=== PATIENT | female | born 1940 | race Caucasian/White ===

== ENCOUNTER 2019-05-24 12:08 | Outpatient (CLI) | payer MEDICARE, SELFPAY ==
--- NOTE | 2019-05-26 15:31 | ONC CON_ITS ---
Dr. Berger New Patient Note Patient: Leonora Gupta Unit #: [id number]: 1940 Dicatated By: Jessica Berger M.D.Date of Visit: May 24, 2019 Onc MED New Patient/Consult Referring Physician: Dr. Ed Shine M.D. History of Present Illness: Mrs. 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 Final pathology confirmed 7 x 6.5 x 6 cm single tumor, well-differentiated endometrioid adenocarcinoma type p TIc, tumor limited to 1 ovary with malignant cell in the peritoneal washings 0 out of 26 lymph node showed metastatic disease N0 FIGO 1C subsequently underwent adjuvant chemotherapy with carboplatin and Taxol ???4 completed in late 2011. Since then she has been followed by Dr. Shine on a yearly basis with no evidence of disease. And her tumor marker CEA 125 was checked on 03/08/2019 and it was 8.7. Patient denies any specific complaints, no abdominal fullness, no abdominal pain, no jaundice, no diarrhea constipation, no weight loss, appetite is good. No fever or chills no night sweats no nausea vomiting. Past Medical History: Ms. Gupta's medical history consists of chronic obstructive pulmonary disease, history of cervical cancer, hyperlipidemia, hypertension, and sciatica. Past Surgical History: Ms. Gupta's surgical/procedural history consists of hysterectomy/bilateral salpingectomy-oophorectomy, repair of retrocele/cystocele, resection of right ovarian mass, right total knee arthroscopy, port placement in 2011, and appendectomy in 196. Medications: Citalopram Hydrobromide 1 Tablet (of 40 mg) Oral daily, Lisinopril 1 Tablet (of 10 mg) Oral daily, LORazepam 1 Tablet (of 1 mg) Oral at bedtime, Metoprolol Succinate ER 2 Tablet (of 100 mg) Tablet SR 24 HR Oral b.i.d., Spiriva Respimat (2.5 mcg/act) Aerosol, solution Inhalation b.i.d. Allergies: No Known Allergies. Social History: Ms. Gupta is and she is retired. She is a daily smoker who has smoked 0.5 packs/day for 5 years. She has no history of drinking. She has indicated exposure to the following products: cigarettes. Ms. Gupta reports the following support systems: lives alone, lives in own house, supportive family/friends willing to assist with needs, and adequate transportation available for expected visits. Her diet consists of regular meals. She indicates her activity level as: occasional exercise. Family History: Ms. Gupta's mother at age 77: myocardial infarction. Ms. Gupta's father at age 91: myocardial infarction. Review Of Symptoms: Constitutional - Appetite is good and weight is increasing. No fever, chills, hot flashes, or night sweats. Energy level is fair, ENMT - No sinus congestion/drainage. No mouth sores. No sore throat or difficulty swallowing, Hematologic/Lymphatic - No abnormal bruising or bleeding, Respiratory - Positive for shortness of breath and cough (Pt states she has COPD), Cardiovascular - No angina pain. No palpitations, Gastrointestinal - No nausea or vomiting. Positive for heartburn, no acid reflux. No diarrhea or constipation. No blood in the stool or black stools, Genitourinary (F) - No dysuria or hematuria. No urinary frequency. No urgency. Positive for incontinence, Musculoskeletal - Positive for generalized joint pain, Neurologic - No headache or dizziness. No numbness/paresthesias or other focal neurologic symptoms, Psychiatric - No anxiety. Positive for depression. No insomnia. Vital Signs: Performed on May 24, 2019 12:47: 0, 35.58 (HIGH), 2.04 sq.m, 65.00 in, 95 % (LOW), 72 /min, 18 /min, 156/80 mm(hg) (HIGH), 97.7 F (LOW), and 213.8 lbs (HIGH). Performance Status: 1 - No physically strenuous activity, but ambulatory and able to carry out light or sedentary work (e.g. office work, light house work). (ECOG) Physical Examination: ENMT - No oral exudates, ulcers, masses, thrush or mucositis. Oropharynx clear. Tongue normal, Respiratory - Lungs are clear to auscultation without rhonchi or wheezing, Cardiovascular - Regular rate and rhythm of heart, Abdomen - Non-tender, non-distended, Good bowel sounds. No guarding or rebound tenderness. No pulsatile masses, Extremities - no edema. Lab/Imaging: Most recent lab results are not available for this patient. 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 shine's office and continue with port maintenance on monthly basis. Patient will return to clinic in February 2020 with CBC CMP and CA-125 unless any new symptoms like recurrent abdominal pain, unexplained weight loss or jaundice or increase in abdominal girth or shortness of breath. Signed By: Jessica Berger M.D. <<Signature on File>>
== END 2019-05-24 12:09 | disposition home or self-care (01) ==
LOC: ONCMED 12:16
PROVIDERS: Family Provider Family Medicine; Visit Provider Internal Medicine Hematology & Oncology
DX: Z08 Encounter for follow-up examination after completed treatment for malignant neoplasm (principal); Z85.43 Personal history of malignant neoplasm of ovary; Z45.2 Encounter for adjustment and management of vascular access device; J44.9 Chronic obstructive pulmonary disease, unspecified; E78.5 Hyperlipidemia, unspecified; I10 Essential (primary) hypertension; F17.210 Nicotine dependence, cigarettes, uncomplicated; F32.9 Major depressive disorder, single episode, unspecified; Z85.41 Personal history of malignant neoplasm of cervix uteri; Z90.722 Acquired absence of ovaries, bilateral; Z92.21 Personal history of antineoplastic chemotherapy
CPT/HCPCS: 96523; 99204

== ENCOUNTER 2019-07-05 13:59 | Outpatient (CLI) | payer MEDICARE, SELFPAY | END 2019-07-05 14:00 | disposition home or self-care (01) | LOC: ONCMED 14:02 | PROVIDERS: Family Provider Family Medicine; PCP Family Medicine; Visit Provider Internal Medicine Hematology & Oncology | DX: Z45.2 Encounter for adjustment and management of vascular access device (principal) | CPT/HCPCS: 96523 ==

== ENCOUNTER 2019-09-27 13:52 | Outpatient (CLI) | payer MEDICARE, SELFPAY ==
[2019-09-27] MEDS: alteplase 1 mg/mL SDV 2 mL 2 MG IV (14:27)
== END 2019-09-27 13:53 | disposition home or self-care (01) ==
LOC: ONCMED 13:54
PROVIDERS: PCP Family Medicine; Visit Provider Internal Medicine Hematology & Oncology
DX: Z85.43 Personal history of malignant neoplasm of ovary (principal)
CPT/HCPCS: 36593; 96374; J2997

== ENCOUNTER 2019-11-08 13:59 | Outpatient (CLI) | payer MEDICARE, SELFPAY | END 2019-11-08 14:00 | disposition home or self-care (01) | LOC: ONCMED 14:02 | PROVIDERS: PCP Family Medicine; Visit Provider Internal Medicine Hematology & Oncology | DX: Z45.2 Encounter for adjustment and management of vascular access device (principal); Z85.43 Personal history of malignant neoplasm of ovary | CPT/HCPCS: 96523 ==

== ENCOUNTER 2019-12-20 13:56 | Outpatient (CLI) | payer MEDICARE, SELFPAY | END 2019-12-20 13:57 | disposition home or self-care (01) | LOC: ONCMED 13:58 | PROVIDERS: PCP Family Medicine; Visit Provider Internal Medicine Hematology & Oncology | DX: Z45.2 Encounter for adjustment and management of vascular access device (principal); Z85.43 Personal history of malignant neoplasm of ovary | CPT/HCPCS: 96523 ==

== ENCOUNTER 2020-01-31 13:54 | Outpatient (CLI) | payer MEDICARE, SELFPAY | END 2020-01-31 13:55 | disposition home or self-care (01) | LOC: ONCMED 13:57 | PROVIDERS: PCP Family Medicine; Visit Provider Internal Medicine Hematology & Oncology | DX: Z45.2 Encounter for adjustment and management of vascular access device (principal) | CPT/HCPCS: 96523 ==

== ENCOUNTER 2020-03-13 12:25 | Outpatient (CLI) | payer MEDICARE, SELFPAY ==
[2020-03-13 13:07] LABS: Basophils % 0.3 %; Eosinophils # 0.1 10^3/uL (0.0-0.8); Eosinophils % 1.7 %; Hematocrit 45.2 % (37.0-47.0); Hemoglobin 14.9 g/dL (11.5-15.3); Lymphocytes # 2.2 10^3/uL (0.8-4.8); Lymphocytes % 33.1 %; Mean Corpuscular Volume 94.2 fL (81-99); Mean Platelet Volume 10.6 fL (7.4-10.4); Monocytes # 0.6 10^3/uL (0.2-0.9); Monocytes % 9.1 %; Neutrophils # 3.67 10^3/uL (1.8-7.7); Neutrophils % 55.5 %; Nucleated Red Blood Cells % 0 %; Platelet Count 309 10^3/cmm (130-400); Red Cell Distribution Width 12.5 % (12.1-15.1); White Blood Count 6.6 10^3/uL (4.0-10.0)
[2020-03-13 13:37] LABS: Alanine Aminotransferase 24 U/L (0-33); Alkaline Phosphatase 64 IU/L (35-105); Anion Gap 13.3 (5-19); Aspartate Amino Transferase 21 U/L (0-32); Blood Urea Nitrogen 18 mg/dL (8-23); CA 125 7.5 U/mL (0-35); Calcium 9.3 mg/dL (8.5-10.5); Carbon Dioxide 28 mmol/L (22-29); Chloride 101 mmol/L (98-107); Globulin 2.9 g/dL (1.3-4.6); Glucose 112 mg/dL (65-115); Osmolality Calculated 289 mOsm/kg (285-295); Potassium 4.3 mmol/L (3.5-5.1); Sodium 138 mmol/L (136-145); Total Bilirubin 0.4 mg/dL (0.15-1.2); Total Protein 6.9 g/dL (6.6-8.7)
--- NOTE | 2020-03-13 16:01 | ONC FU_ITS ---
Dr. Berger follow up note Patient: Leonora Gupta Unit #: [id number]: 1940 Dicatated By: Jessica Berger M.D.Date of Visit:Mar 13, 2020 Onc Med Follow-up/Prog Note History of Present Illness: Mrs. 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 Final pathology confirmed 7 x 6.5 x 6 cm single tumor, well-differentiated endometrioid adenocarcinoma type p TIc, tumor limited to 1 ovary with malignant cell in the peritoneal washings 0 out of 26 lymph node showed metastatic disease N0 FIGO 1C subsequently underwent adjuvant chemotherapy with carboplatin and Taxol ???4 completed in late 2011. Since then she has been followed by Dr. Monroy on a yearly basis with no evidence of disease. And her tumor marker CEA 125 was checked on 03/08/2019 and it was 8.7. Came for follow-up, denies any specific complaints, no fever chills, no nausea or vomiting, no diarrhea constipation, no abdominal pain or fullness, no vaginal bleeding, no jaundice, no hemoptysis or hematemesis, no shortness of breath, no increased abdominal health. Appetite is good. Medications: Citalopram Hydrobromide 1 Tablet (of 40 mg) Oral daily, Lisinopril 1 Tablet (of 10 mg) Oral daily, LORazepam 1 Tablet (of 1 mg) Oral at bedtime, Metoprolol Succinate ER 2 Tablet (of 100 mg) Tablet SR 24 HR Oral b.i.d., Spiriva Respimat (2.5 mcg/act) Aerosol, solution Inhalation b.i.d. Allergies: No Known Allergies. Review of Systems: Review of Systems is not available for this patient. Vital Signs: Performed on Mar 13, 2020 14:18 Height - 65.00 in Weight - 214.6 lbs (HIGH) BSA - 2.04 sq.m BMI - 35.71 (HIGH) Temperature - 98.3 F (LOW) Pulse - 75 /min Respiration - 24 /min BP - 150/90 mm(hg) (HIGH) O2 Sat - 95 % (LOW) Pain - 0 Performance Status: 0 - Fully active, able to carry on all predisease activities without restrictions. (ECOG) Physical Examination: ENMT - No mouth sores, no thrush, no jaundice, Respiratory - Lungs are clear to auscultation, Cardiovascular - Regular rate and rhythm of heart, Abdomen - Soft, bowel sounds present, Extremities - No visible edema. Lab/Imaging: Most recent lab results are not available for this patient. 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, status post bilateral salpingo-oophorectomy, pelvic and periaortic lymphadenectomy, omentectomy final pathology report showed T1c tumor limited to 1 ovary with malignant cell and the peritoneal washing 0 /26 lymph node positive for metastatic disease N0 FIGO 1C status post adjuvant chemotherapy with carbo and Taxol ???4 completed in late April 2012 Plan: Discussed with patient regarding her labs white blood count 6.6 hemoglobin 14.9 hematocrit 45.2 platelets 309,000 CMP within normal limits CA-125 7.5 Clinically, patient doing well with no new signs symptoms, with good quality of life, follow-up lab work-up is within normal range, will continue to monitor return to clinic in 1 year with CBC CMP Signed By: Jessica Berger M.D. <<Signature on File>>
== END 2020-03-13 12:26 | disposition home or self-care (01) ==
LOC: ONCMED 12:28
PROVIDERS: PCP Family Medicine; Visit Provider Internal Medicine Hematology & Oncology
DX: Z08 Encounter for follow-up examination after completed treatment for malignant neoplasm (principal); Z85.43 Personal history of malignant neoplasm of ovary; Z92.21 Personal history of antineoplastic chemotherapy
CPT/HCPCS: 36591; 80053; 85025; 86304; G0463

== ENCOUNTER 2020-04-21 10:44 | Emergency (ER) | payer MEDICARE, SELFPAY ==
[2020-04-21 10:50] VITALS: BP 226/105; PULSE 62; RESP 30; TEMP 35.9; O2SAT 95; BMI 33.3
--- NOTE | 2020-04-21 10:55 | ECG_ITS ---
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1940 Requested By: Lesa Castillo Order Number: [id number] Reading MD: BEN MUNOZ Measurements Intervals [place] Rate: 59 P: 75 MO: 175 QRS: 38 QRSD: 87 T: 66 QT: 446 QTc: 443 Interpretive Statements SINUS BRADYCARDIA POSSIBLE LEFT ATRIAL ENLARGEMENT [-0.1mV P WAVE IN V1/V2] Compared to ECG 08/17/2018 11:07:23 Myocardial infarct finding no longer present Electronically Signed On 04-21-2020 18:54:22 BAKER CHEF by BEN MUNOZ [id number] f
--- NOTE | 2020-04-21 10:55 | CTR_ITS ---
PROCEDURE INFORMATION: Exam: CT Head Without Contrast Exam date and time: 04/21/2020 11:34 AM Age: 79 years old Clinical indication: Dizziness; Additional info: Dizzy TECHNIQUE: Imaging protocol: Computed tomography of the head without contrast. Radiation optimization: All CT scans at this facility use at least one of these dose optimization techniques: automated exposure control; mA and/or kV adjustment per patient size (includes targeted exams where dose is matched to clinical indication); or iterative reconstruction. COMPARISON: No relevant prior studies available. RADIATION DOSE METRICS: Total DLP (mGy-cm): 705.57 FINDINGS: Brain: There is linear low-density in region of left internal capsule which may be perivascular space or a chronic small lacunar infarct. There is no acute intracranial hemorrhage. There is mild lucency in the cerebral white matter, likely microvascular disease although non-specific. Simpson white differentiation is intact. There are no extra-axial fluid collections. No evidence of mass. There is no mass effect or midline shift. Cerebral ventricles: There is a linear mild hyperdensity extending from right occipital posterior sulcus to the posterior ventricular margin which is likely a small developmental venous anomaly, typically not of clinical significance. The ventricles and sulci are enlarged, consistent with age-appropriate volume loss / atrophy. No hydrocephalus. Bones/joints: No acute fracture. Paranasal sinuses: There is no significant mucosal thickening in paranasal sinuses. No air-fluid levels. There is a very small retention cyst or polyp in a right mid ethmoid air cell. Mastoid air cells: Mastoid air cells and middle ear cavities are well developed and well aerated. Vasculature: There is vascular calcification. Soft tissues: Unremarkable as visualized. CT/CT head wo con* [id number] IMPRESSION: 1. No evidence of acute intracranial abnormality. No evidence of acute infarction, hemorrhage, or mass. 2. Atrophy and microvascular disease. 3. Other findings as described. Radiation Dose CTDIVOL = (mGy): DLP = 705.57 (mGy-cm)
--- NOTE | 2020-04-21 10:57 | W.ED.DIZZY ---
HPI - Dizziness General: Chief Complaint: Dizziness Stated Complaint: High BP, N/V, Dizziness Time Seen by Provider: 04/21/20 10:51 Source: patient Mode of arrival: ambulatory Limitations: no limitations History of Present Illness: HPI Narrative: 71-year-old female states over the last 3 days she has had dizziness no nausea vomiting. She states she has severe vertigo with any sudden movements and has vomiting. She states she has had this in the past and meclizine helped in the past but does not help today. States her blood pressures also been running high and is 226/105 here. Denies any headache denies any chest pain. States her symptoms are improved with rest. Associated symptoms: Reports nausea and vomiting; Denies chest pain or chills Review of Systems Const: Denies: fever(s), chills, body aches or change in appetite Eyes: Denies: blurry vision or eye discomfort ENMT: Denies: throat pain or dental pain Card: Denies: chest pain Resp: Denies: dyspnea GI: Reports: nausea and vomiting : Denies: dysuria Musc: Denies: neck pain or back pain Skin/Breast: Denies: rash Neuro: Reports: dizziness Psych: Denies: depression Smooth/Lymph: Denies: easy bruising All/Imm: Denies: urticaria PFSH ED PFSH: Social History Current gender identity: Female Physical Exam Const: COMMON NORMALS: no acute distress, patient oriented x3 and healthy appearing HENMT: COMMON NORMALS: normocephalic and atraumatic HEAD & SCALP: normocephalic and atraumatic Eye: COMMON NORMALS: Equal, round and reactive pupils present and EOMs intact bilaterally PUPIL: Yes Equal, round and reactive pupils present Neck/C-Spine: COMMON NORMALS: full ROM and supple Chest: COMMONS NORMALS: normal inspection of the chest and normal palpation of entire chest wall Resp: COMMON NORMALS: normal respiratory effort, No retractions, No use of accessory muscles and clear to auscultation bilaterally AUSCULTATION: clear to auscultation bilaterally Cardio: COMMON NORMALS: regular rate, regular rhythm and No murmurs present (Cardio) RATE: regular rate RHYTHM: regular rhythm GI: COMMON NORMALS: Normal to inspection, nondistended, normoactive bowel sounds present, Soft to palpation, non-tender and no masses PALPATION: Yes Soft to palpation Extremity: COMMON NORMALS: normal to inspection and full ROM Neuro: COMMON NORMALS: patient oriented x3, moves all extremities and no focal motor deficits Psych: COMMON NORMALS: mental status grossly normal, Normal thought process present and cooperative THOUGHT PROCESS: Normal thought process present Skin: COMMON NORMALS: no rashes or lesions noted and no wounds GENERAL SKIN EXAM: no rashes or lesions noted Course Vital Signs: Vital signs: Vital Signs Temperature 96.7 F L 04/21/20 10:50 Pulse Rate 73 04/21/20 12:44 Respiratory Rate 17 04/21/20 12:44 Blood Pressure 173/85 04/21/20 12:43 Pulse Oximetry 95 04/21/20 12:44 MDM - Dizziness MDM Narrative: Medical decision making narrative: Patient presents here with vertigo that is likely peripheral in nature. Patient has a history of BPPV and her symptoms are the same. She feels much improved here after meclizine and Valium. She is able to ambulate without no ataxia and no vertigo. She has no vertigo at rest and I do not believe she has had a posterior stroke. She is stable for discharge and I informed her if her symptoms return she is to return immediately. She understands agrees to plan. Lab Data: Labs: Lab Results 04/21/20 04/21/20 04/21/20 Range/Units 11:12 11:12 12:45 WBC Cancelled 8.2 Corrected WBC Cancelled RBC Cancelled 4.87 Hgb Cancelled 15.0 Hct Cancelled 45.6 MCV Cancelled 93.6 MCH Cancelled 30.8 MCHC Cancelled 32.9 RDW Cancelled 12.3 Plt Count Cancelled 286 MPV Cancelled 10.8 H Gran % Cancelled Neut % (Auto) Cancelled 70.2 Lymph % (Auto) Cancelled 20.9 Pope % (Auto) Cancelled 7.9 Eos % (Auto) Cancelled 0.7 Baso % (Auto) Cancelled 0.1 Neut # (Auto) Cancelled 5.76 Lymph # (Auto) Cancelled 1.7 Pope # (Auto) Cancelled 0.7 Eos # (Auto) Cancelled 0.1 Baso # (Auto) Cancelled 0.0 Absolute Gran (aut o) Cancelled Nucleated RBC % (a uto) Cancelled 0 Nucleated RBCs # Cancelled 0.0 Sodium 139 (136-145) mmol/L Potassium 3.5 (3.5-5.1) mmol/L Chloride 102 (98-107) mmol/L Carbon Dioxide 25 (22-29) mmol/L Anion Gap 15.5 (5-19) BUN 13 (8-23) mg/dL Creatinine 0.6 (0.5-0.9) mg/dL GFR Calculation Not Reportable Glucose 97 (65-115) mg/dL Calculated Osmolal ity 288 (285-295) mOsm/k g Calcium 8.6 (8.5-10.5) mg/dL Total Bilirubin 0.5 (0.15-1.2) mg/dL AST 16 (0-32) U/L ALT 16 (0-33) U/L Alkaline Phosphata se 60 (35-105) IU/L Total Protein 6.6 (6.6-8.7) g/dL Albumin 3.9 (3.5-5.2) g/dL Globulin 2.7 (1.3-4.6) g/dL Lipase 30 (13-60) U/L Imaging Data^: CT Head: Attestation: I personally reviewed and interpreted this imaging study as follows: Radiologist's impression: [address] [address] [address] Scan Report Signed Patient: Leonora Gupta Unit #: [id number] : 1940 Age/Sex: 79 / F ADM Date: 04/21/20 Loc: ER Room/Bed: Attending Dr: Ordering Provider/Ordering MD: Lesa Castillo MD Date of Service: 04/21/20 Procedure(s): CT head wo con* [id number] Accession Number(s): [id number] Report Number: [id number] PROCEDURE INFORMATION: Exam: CT Head Without Contrast Exam date and time: 04/21/2020 11:34 AM Age: 79 years old Clinical indication: Dizziness; Additional info: Dizzy TECHNIQUE: Imaging protocol: Computed tomography of the head without contrast. Radiation optimization: All CT scans at this facility use at least one of these dose optimization techniques: automated exposure control; mA and/or kV adjustment per patient size (includes targeted exams where dose is matched to clinical indication); or iterative reconstruction. COMPARISON: No relevant prior studies available. RADIATION DOSE METRICS: Total DLP (mGy-cm): 705.57 FINDINGS: Brain: There is linear low-density in region of left internal capsule which may be perivascular space or a chronic small lacunar infarct. There is no acute intracranial hemorrhage. There is mild lucency in the cerebral white matter, likely microvascular disease although non-specific. Simpson white differentiation is intact. There are no extra-axial fluid collections. No evidence of mass. There is no mass effect or midline shift. Cerebral ventricles: There is a linear mild hyperdensity extending from right occipital posterior sulcus to the posterior ventricular margin which is likely a small developmental venous anomaly, typically not of clinical significance. The ventricles and sulci are enlarged, consistent with age-appropriate volume loss / atrophy. No hydrocephalus. Bones/joints: No acute fracture. Paranasal sinuses: There is no significant mucosal thickening in paranasal sinuses. No air-fluid levels. There is a very small retention cyst or polyp in a right mid ethmoid air cell. Mastoid air cells: Mastoid air cells and middle ear cavities are well developed and well aerated. Vasculature: There is vascular calcification. Soft tissues: Unremarkable as visualized. CT/CT head wo con* [id number] IMPRESSION: 1. No evidence of acute intracranial abnormality. No evidence of acute infarction, hemorrhage, or mass. 2. Atrophy and microvascular disease. 3. Other findings as described. EKG Data^: EKG 1: Attestation: I personally reviewed and interpreted this EKG as follows: EKG interpretation date: 04/21/20 EKG interpretation time: 10:59 Interpretation: sinus divina hr [address] or t wave abnormalities qrs 87 qtc 445 Discharge Plan Discharge Patient Disposition: Home Clinical Impression: Vertigo Condition: Stable Prescriptions: New ondansetron 4 mg tablet,disintegrating 4 mg PO Q6H PRN (Reason: nausea and vomiting) Qty: 14 RF: 0 Valium 2 mg tablet 2 mg PO TID PRN (Reason: vertigo) Qty: 14 RF: 0 No Action citalopram 40 mg tablet 40 mg PO DAILY@10 RF: 0 metoprolol succinate 100 mg tablet extended release 24 hr 100 mg PO Q12H RF: 0 lorazepam 0.5 mg tablet 0.5 - 0.75 mg PO DAILY@21 RF: 0 meclizine 25 mg tablet 25 mg PO BID PRN (Reason: Nausea) RF: 0 lisinopril 40 mg tablet 40 mg PO DAILY@10 RF: 0 Spiriva Respimat 2.5 mcg/actuation mist 2 puff INHALATION DAILY PRN (Reason: unknown) RF: 0 Discharge Orders: Discharge ED (Routine); Ordered 04/21/20 Ordered By: Lesa Castillo Referrals: Jared Casanova MD [Primary Care Provider] - 1-3 days Discharge Diet: Advance as tolerated Discharge Activity: Resume usual activity Patient Instructions: Benign Paroxysmal Positional Vertigo (ED) Coding Level of Care Code 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
[2020-04-21] MEDS: ondansetron 2 mg/ML SDV 2 mL 4 MG IVP (11:44)
[2020-04-21] MEDS: sodium chloride 0.9% 1,000 ML 999 ML IV (11:45)
[2020-04-21] MEDS: hyDRALAzine 20 mg/mL INJ 1 mL 10 MG IVP (11:48)
[2020-04-21] MEDS: diazePAM 2 mg Tablet PO (11:50)
[2020-04-21 11:53] VITALS: BP 175/93; PULSE 58; RESP 19; O2SAT 94
[2020-04-21 12:18] LABS: Alanine Aminotransferase 16 U/L (0-33); Albumin Level 3.9 g/dL (3.5-5.2); Alkaline Phosphatase 60 IU/L (35-105); Anion Gap 15.5 (5-19); Aspartate Amino Transferase 16 U/L (0-32); Blood Urea Nitrogen 13 mg/dL (8-23); Calcium 8.6 mg/dL (8.5-10.5); Carbon Dioxide 25 mmol/L (22-29); Chloride 102 mmol/L (98-107); Globulin 2.7 g/dL (1.3-4.6); Glucose 97 mg/dL (65-115); Lipase 30 U/L (13-60); Osmolality Calculated 288 mOsm/kg (285-295); Potassium 3.5 mmol/L (3.5-5.1); Sodium 139 mmol/L (136-145); Total Bilirubin 0.5 mg/dL (0.15-1.2); Total Protein 6.6 g/dL (6.6-8.7)
[2020-04-21 12:43] VITALS: BP 173/85
[2020-04-21 12:44] VITALS: PULSE 73; RESP 17; O2SAT 95
[2020-04-21] MEDS: meclizine 25 mg tablet 50 MG PO (12:50)
[2020-04-21 13:13] LABS: Basophils % 0.1 %; Eosinophils # 0.1 10^3/uL (0.0-0.8); Eosinophils % 0.7 %; Hematocrit 45.6 % (37.0-47.0); Lymphocytes # 1.7 10^3/uL (0.8-4.8); Lymphocytes % 20.9 %; Mean Corpuscular HGB Conc 32.9 g/dL (30.0-36.0); Mean Corpuscular Hemoglobin 30.8 pg (28.0-34.0); Mean Corpuscular Volume 93.6 fL (81-99); Mean Platelet Volume 10.8 fL (7.4-10.4); Monocytes # 0.7 10^3/uL (0.2-0.9); Monocytes % 7.9 %; Neutrophils # 5.76 10^3/uL (1.8-7.7); Neutrophils % 70.2 %; Nucleated Red Blood Cells % 0 %; Platelet Count 286 10^3/cmm (130-400); Red Blood Count 4.87 10^6/uL (4.1-5.3); Red Cell Distribution Width 12.3 % (12.1-15.1); White Blood Count 8.2 10^3/uL (4.0-10.0)
--- NOTE | 2020-04-21 13:34 | PC.NURSE ---
pt assisted to a sitting position in bed. pt reports that nausea and dizziness are still present but not as severe. pt requests to stand up and try to ambulate around the room. pt assisted with this. pt reports that dizziness is better when standing than when laying flat in bed. pt reports that nausea remains the same as when sitting up. Leonardo SEBASTIAN notified. pt assisted back to bed. bed rails raised x2 per pt request.
== END 2020-04-21 14:10 | disposition home or self-care (01) ==
PROVIDERS: Emergency Provider Emergency Medicine; PCP Family Medicine
DX: R42 Dizziness and giddiness (principal)
CPT/HCPCS: 12345; 36591; 70450; 80053; 83690; 85025; 93005; 96361; 96374; 96375; 99281; 99283; J0360; J2405; J7030; J8597

== ENCOUNTER 2020-04-24 16:26 | Outpatient (RCR) | payer MEDICARE, SELFPAY | END 2020-05-10 23:59 | disposition home or self-care (01) | LOC: SPT 16:26 | PROVIDERS: PCP Family Medicine; Referring Provider Family Medicine; Visit Provider Family Medicine | DX: R42 Dizziness and giddiness (principal) | CPT/HCPCS: 95992; 97110; 97162 ==

== ENCOUNTER 2020-05-02 10:00 | Outpatient (CLI) | payer MEDICARE, SELFPAY ==
--- NOTE | 2020-05-02 10:13 | MR_ITS ---
WS: [id number] MRI HEAD WITH CONTRAST WITH ATTENTION TO THE INTERNAL AUDITORY CANALS TECHNIQUE: Sagittal T1, T2 axial, T2 axial flair, axial susceptibility weighted imaging, axial diffus ion weighted images, and coronal T2 images were obtained. Pre and post T1 axial and post T1 coronal i mages. ADC and FSPGR images. Post gadolinium images with attention to the internal auditory canals. A xial fiesta imaging. CLINICAL INFORMATION: VERTIGO COMPARISON: CT April 21, 2020 FINDINGS: No evidence of restricted diffusion to suggest acute ischemia. Ventricular system and basal cisterns are patent. Mild small vessel changes. Moderate parenchymal volume loss. Mild small vessel changes in the lebron. Normal posterior fossa. Normal vascular flow voids at the skull base. No extra-axial fluid collections. Mild mucosal thickening in the paranasal sinuses. Mastoid air cells are well aerated. No hemosiderin on the susceptibility weighted images. Proximal 7th and 8th cranial nerves are normal in appearance. Normal trigeminal nerve root entry zone s. No evidence of enhancing IAC or CP angle mass. Moderate symmetric atrophy temporal lobes and hippo campal formations. No abnormal intracranial enhancement. Normal dural venous sinuses. Normal optic ch iasm and pituitary infundibulum. Normal cavernous sinuses and Meckel's cave. Incidental venous angiom a right posterior temporal lobe. MR/MR iac's wo/w con* [id number] IMPRESSION: 1. No evidence of restricted diffusion to suggest acute ischemia. 2. Mild small vessel changes with moderate parenchymal volume loss. 3. No evidence of enhancing IAC or CP angle mass. Normal trigeminal nerve root entry zones. 4. Incidental venous angioma right posterior temporal lobe. 5. Mild mucosal thickening in the paranasal sinuses. Mastoid air cells are wel l aerated.
== END 2020-05-02 10:01 | disposition home or self-care (01) ==
LOC: RADWPI 10:03
PROVIDERS: PCP Family Medicine; Visit Provider Family Medicine
DX: R42 Dizziness and giddiness (principal); Q28.3 Other malformations of cerebral vessels
CPT/HCPCS: 70553; A9579

== ENCOUNTER 2020-05-11 06:00 | Outpatient (RCR) | payer MEDICARE, SELFPAY | END 2020-06-10 23:59 | disposition home or self-care (01) | LOC: SPT 06:00 | PROVIDERS: PCP Family Medicine; Referring Provider Family Medicine; Visit Provider Family Medicine | DX: R42 Dizziness and giddiness (principal) | CPT/HCPCS: 95992 ==

== ENCOUNTER 2020-05-24 14:45 | Outpatient (CLI) | payer MEDICARE, SELFPAY | END 2020-05-24 14:46 | disposition home or self-care (01) | LOC: ONCMED 14:50 | PROVIDERS: PCP Family Medicine; Visit Provider Internal Medicine Hematology & Oncology | DX: Z45.2 Encounter for adjustment and management of vascular access device (principal) | CPT/HCPCS: 96523 ==

== ENCOUNTER 2020-07-05 14:41 | Outpatient (CLI) | payer MEDICARE, SELFPAY | END 2020-07-05 14:42 | disposition home or self-care (01) | LOC: ONCMED 14:43 | PROVIDERS: PCP Family Medicine; Visit Provider Internal Medicine Hematology & Oncology | DX: Z45.2 Encounter for adjustment and management of vascular access device (principal) | CPT/HCPCS: 96523 ==

== ENCOUNTER 2020-08-16 11:11 | Outpatient (CLI) | payer MEDICARE, SELFPAY | END 2020-08-16 11:12 | disposition home or self-care (01) | LOC: ONCMED 08-17 11:12 | PROVIDERS: PCP Family Medicine; Visit Provider Internal Medicine Medical Oncology | DX: Z45.2 Encounter for adjustment and management of vascular access device (principal) | CPT/HCPCS: 96523 ==

== ENCOUNTER 2020-09-27 14:44 | Outpatient (CLI) | payer MEDICARE, SELFPAY ==
[2020-09-27] MEDS: alteplase 1 mg/mL SDV 2 mL 2 MG IV (15:35)
== END 2020-09-27 14:45 | disposition home or self-care (01) ==
PROVIDERS: PCP Family Medicine; Visit Provider Internal Medicine Hematology & Oncology
DX: Z85.43 Personal history of malignant neoplasm of ovary (principal)
CPT/HCPCS: 36593; 96374; J2997

== ENCOUNTER 2020-12-20 14:34 | Outpatient (CLI) | payer MEDICARE, SELFPAY ==
[2020-12-20 16:06] LABS: Alanine Aminotransferase 17 U/L (0-33); Alkaline Phosphatase 61 IU/L (35-105); Anion Gap 12.2 (5-19); Aspartate Amino Transferase 15 U/L (0-32); Blood Urea Nitrogen 16 mg/dL (8-23); Calcium 8.7 mg/dL (8.5-10.5); Carbon Dioxide 28 mmol/L (22-29); Chloride 102 mmol/L (98-107); Chol HDL Ratio 5.44 mg/dL (0.0-4.40); Cholesterol 261 mg/dL (0-200); Globulin 2.5 g/dL (1.3-4.6); Glucose 85 mg/dL (65-115); HDL Cholesterol 48 mg/dL (60-100); LDL Cholesterol Calculated 175 mg/dL (50-129); LDL HDL Ratio 3.65 RATIO (0.00-3.22); Osmolality Calculated 286 mOsm/kg (285-295); Potassium 4.2 mmol/L (3.5-5.1); Sodium 138 mmol/L (136-145); Total Bilirubin 0.4 mg/dL (0.15-1.2); Total Protein 6.5 g/dL (6.6-8.7); Triglycerides 192 mg/dL (0-150)
== END 2020-12-20 14:35 | disposition home or self-care (01) ==
LOC: ONCMED 14:39
PROVIDERS: PCP Family Medicine; Visit Provider Internal Medicine Hematology & Oncology
DX: C54.1 Malignant neoplasm of endometrium (principal); R42 Dizziness and giddiness; Z79.899 Other long term (current) drug therapy
CPT/HCPCS: 36591; 80053; 80061

== ENCOUNTER 2021-01-31 15:09 | Outpatient (CLI) | payer MEDICARE, SELFPAY | END 2021-01-31 15:10 | disposition home or self-care (01) | LOC: ONCMED 15:11 | PROVIDERS: PCP Family Medicine; Visit Provider Internal Medicine Hematology & Oncology | DX: Z45.2 Encounter for adjustment and management of vascular access device (principal) | CPT/HCPCS: 96523 ==

== ENCOUNTER 2021-04-23 12:22 | Outpatient (CLI) | payer MEDICARE, SELFPAY ==
[2021-04-23 13:01] LABS: Basophils % 0.3 %; Eosinophils # 0.2 10^3/uL (0.0-0.8); Hematocrit 45.1 % (37.0-47.0); Hemoglobin 14.9 g/dL (11.5-15.3); Lymphocytes # 2.2 10^3/uL (0.8-4.8); Lymphocytes % 34.5 %; Mean Corpuscular Hemoglobin 30.8 pg (28.0-34.0); Mean Corpuscular Volume 93.4 fl (81-99); Monocytes # 0.7 10^3/uL (0.2-0.9); Monocytes % 10.2 %; Neutrophils % 51.7 %; Nucleated Red Blood Cells % 0 %; Platelet Count 258 10^3/cmm (130-400); Red Blood Count 4.83 10^6/uL (4.1-5.3); Red Cell Distribution Width 12.2 % (12.1-15.1); White Blood Count 6.4 10^3/uL (4.0-10.0)
[2021-04-23 13:18] LABS: Alanine Aminotransferase 13 U/L (0-33); Alkaline Phosphatase 55 IU/L (35-105); Anion Gap 16.3 (5-19); Aspartate Amino Transferase 14 U/L (0-32); Blood Urea Nitrogen 14 mg/dL (8-23); Calcium 8.6 mg/dL (8.5-10.5); Carbon Dioxide 24 mmol/L (22-29); Chloride 103 mmol/L (98-107); Globulin 2.5 g/dL (1.3-4.6); Glucose 87 mg/dL (65-115); Osmolality Calculated 288 mOsm/kg (285-295); Potassium 4.3 mmol/L (3.5-5.1); Sodium 139 mmol/L (136-145); Total Bilirubin 0.3 mg/dL (0.15-1.2); Total Protein 6.5 g/dL (6.6-8.7)
[2021-04-23 13:35] LABS: Slide Review Slide Review Perform
--- NOTE | 2021-04-24 11:09 | ONC FU_ITS ---
Dr. Berger follow up note Patient: Leonora Gupta Unit #: [id number]: 1940 Dicatated By: Jessica Berger M.D.Date of Visit:Apr 23, 2021 Onc Med Follow-up/Prog Note History of Present Illness: Mrs. 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 Final pathology confirmed 7 x 6.5 x 6 cm single tumor, well-differentiated endometrioid adenocarcinoma type p TIc, tumor limited to 1 ovary with malignant cell in the peritoneal washings 0 out of 26 lymph node showed metastatic disease N0 FIGO 1C subsequently underwent adjuvant chemotherapy with carboplatin and Taxol ???4 completed in late 2011. Since then she has been followed by Dr. Monroy on a yearly basis with no evidence of disease. And her tumor marker CEA 125 was checked on 03/08/2019 and it was 8.7. Came for follow-up, denies any specific complaints, no fever chills, no nausea or vomiting, no diarrhea constipation, no abdominal pain, no weight loss, no vaginal bleeding, no abdominal fullness, no new bony pains, no shortness of breath, no hemoptysis or hematemesis. Overall quality of life is good Medications: Citalopram Hydrobromide 1 Tablet (of 40 mg) Oral daily, Lisinopril 1 Tablet (of 10 mg) Oral daily, LORazepam 1 Tablet (of 1 mg) Oral at bedtime, Metoprolol Succinate ER 2 Tablet (of 100 mg) Tablet SR 24 HR Oral b.i.d., Spiriva Respimat (2.5 mcg/act) Aerosol, solution Inhalation b.i.d. Allergies: No Known Allergies. Review of Systems: Review of Systems is not available for this patient. Vital Signs: Performed on Apr 23, 2021 14:53 Height - 65.00 in Weight - 210.0 lbs (LOW) BSA - 2.02 sq.m BMI - 34.95 (HIGH) Temperature - 98.2 F (LOW) Pulse - 72 /min Respiration - 18 /min BP - 165/94 mm(hg) (HIGH) O2 Sat - 94 % (LOW) Pain - 0 Fatigue - 1 Performance Status: 0 - Fully active, able to carry on all predisease activities without restrictions. (ECOG) Physical Examination: ENMT - No mouth sores, no thrush, no jaundice, Respiratory - Lungs are clear to auscultation, Cardiovascular - Regular rate and rhythm of heart, Abdomen - Soft, bowel sounds present, Extremities - No visible edema. Lab/Imaging: Most recent lab results are not available for this patient. 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 Her follow-up lab work-up is within normal range, She will return to clinic in 1 year with CBC CMP^, Patient was advised to call us in case she has any increasing abdominal girth, new abdominal pain,] Signed By: Jessica Berger M.D. <<Signature on File>>
== END 2021-04-23 12:23 | disposition home or self-care (01) ==
LOC: ONCMED 12:25
PROVIDERS: PCP Family Medicine; Visit Provider Internal Medicine Hematology & Oncology
DX: Z85.43 Personal history of malignant neoplasm of ovary (principal)
CPT/HCPCS: 36591; 80053; 85025; 99214

== ENCOUNTER 2021-06-04 14:03 | Outpatient (CLI) | payer MEDICARE, SELFPAY | END 2021-06-04 14:04 | disposition home or self-care (01) | LOC: ONCMED 14:08 | PROVIDERS: PCP Family Medicine; Visit Provider Internal Medicine Hematology & Oncology | DX: Z45.2 Encounter for adjustment and management of vascular access device (principal) | CPT/HCPCS: 96523 ==

== ENCOUNTER 2021-07-16 13:51 | Outpatient (CLI) | payer MEDICARE, SELFPAY | END 2021-07-16 13:52 | disposition home or self-care (01) | PROVIDERS: PCP Family Medicine; Visit Provider Internal Medicine Hematology & Oncology | DX: Z45.2 Encounter for adjustment and management of vascular access device (principal) | CPT/HCPCS: 96523 ==

== ENCOUNTER 2021-08-27 12:53 | Outpatient (CLI) | payer MEDICARE, SELFPAY | END 2021-08-27 12:54 | disposition home or self-care (01) | LOC: ONCMED 12:56 | PROVIDERS: PCP Family Medicine; Visit Provider Internal Medicine Hematology & Oncology | DX: R42 Dizziness and giddiness (principal); C56.9 Malignant neoplasm of unspecified ovary; Z95.828 Presence of other vascular implants and grafts | CPT/HCPCS: 36591 ==

== ENCOUNTER 2021-10-10 14:50 | Oncology outpatient (recurring) (ONCR) | payer MEDICARE, SELFPAY | END 2021-11-07 23:59 | disposition home or self-care (01) | LOC: ONCMED 14:50 | PROVIDERS: PCP Family Medicine; Visit Provider Internal Medicine Hematology & Oncology | DX: Z45.2 Encounter for adjustment and management of vascular access device (principal) | CPT/HCPCS: 96523 ==

== ENCOUNTER 2021-11-19 13:54 | Oncology outpatient (recurring) (ONCR) | payer MEDICARE, SELFPAY | END 2021-12-08 23:59 | disposition home or self-care (01) | PROVIDERS: PCP Family Medicine; Visit Provider Internal Medicine Hematology & Oncology | DX: Z45.2 Encounter for adjustment and management of vascular access device (principal) | CPT/HCPCS: 96523 ==

== ENCOUNTER 2021-12-31 13:02 | Oncology outpatient (recurring) (ONCR) | payer MEDICARE, SELFPAY ==
[2021-12-31 13:26] VITALS: BP 144/79; PULSE 61; RESP 18; TEMP 36.6; O2SAT 96
[2021-12-31 13:44] LABS: Basophils % 0.3 %; Eosinophils # 0.1 10^3/uL (0.0-0.8); Eosinophils % 1.8 %; Hematocrit 45.5 % (37.0-47.0); Hemoglobin 14.8 g/dL (11.5-15.3); Lymphocytes # 2.3 10^3/uL (0.8-4.8); Lymphocytes % 31.2 %; Mean Corpuscular HGB Conc 32.5 g/dL (30.0-36.0); Mean Corpuscular Hemoglobin 30.3 pg (28.0-34.0); Mean Corpuscular Volume 93.2 fl (81-99); Mean Platelet Volume 10.9 fL (7.4-10.4); Monocytes # 0.6 10^3/uL (0.2-0.9); Monocytes % 8.3 %; Neutrophils # 4.21 10^3/uL (1.8-7.7); Neutrophils % 58.1 %; Nucleated Red Blood Cells % 0 %; Platelet Count 323 10^3/cmm (130-400); Red Blood Count 4.88 10^6/uL (4.1-5.3); Red Cell Distribution Width 12.3 % (12.1-15.1); White Blood Count 7.2 10^3/uL (4.0-10.0)
[2021-12-31 14:11] LABS: Alanine Aminotransferase 16 U/L (0-33); Albumin Level 4.2 g/dL (3.5-5.2); Alkaline Phosphatase 68 U/L (35-105); Anion Gap 15.4 (5-19); Aspartate Amino Transferase 15 U/L (0-32); Blood Urea Nitrogen 12 mg/dL (8-23); Calcium 9.5 mg/dL (8.5-10.5); Carbon Dioxide 28 mmol/L (22-29); Chloride 101 mmol/L (98-107); Globulin 2.7 g/dL (1.3-4.6); Glucose 100 mg/dL (65-115); Osmolality Calculated 290 mOsm/kg (285-295); Potassium 4.4 mmol/L (3.5-5.1); Sodium 140 mmol/L (136-145); Total Bilirubin 0.3 mg/dL (0.15-1.2); Total Protein 6.9 g/dL (6.6-8.7)
== END 2022-01-08 23:59 | disposition home or self-care (01) ==
PROVIDERS: PCP Family Medicine; Visit Provider Internal Medicine Hematology & Oncology
DX: Z85.43 Personal history of malignant neoplasm of ovary (principal); Z08 Encounter for follow-up examination after completed treatment for malignant neoplasm; I10 Essential (primary) hypertension
CPT/HCPCS: 36591; 80053; 85025

== ENCOUNTER 2022-02-11 13:55 | Oncology outpatient (recurring) (ONCR) | payer MEDICARE, SELFPAY | END 2022-03-10 23:59 | disposition home or self-care (01) | LOC: ONCMED 13:56 | PROVIDERS: PCP Family Medicine; Visit Provider Internal Medicine Hematology & Oncology | DX: Z45.2 Encounter for adjustment and management of vascular access device (principal) | CPT/HCPCS: 96523 ==

== ENCOUNTER 2022-03-25 13:00 | Oncology outpatient (recurring) (ONCR) | payer MEDICARE, SELFPAY | END 2022-04-09 23:59 | disposition home or self-care (01) | LOC: ONCMED 13:00 | PROVIDERS: PCP Family Medicine; Visit Provider Internal Medicine Hematology & Oncology | DX: Z45.2 Encounter for adjustment and management of vascular access device (principal) | CPT/HCPCS: 96523 ==

== ENCOUNTER 2022-05-08 14:20 | Oncology outpatient (recurring) (ONCR) | payer MEDICARE, SELFPAY | END 2022-05-10 23:59 | disposition home or self-care (01) | LOC: ONCMED 14:21 | PROVIDERS: PCP Family Medicine; Visit Provider Internal Medicine Hematology & Oncology | DX: Z45.2 Encounter for adjustment and management of vascular access device (principal) | CPT/HCPCS: 96523 ==

== ENCOUNTER 2022-06-02 12:38 | Oncology outpatient (recurring) (ONCR) | payer MEDICARE, SELFPAY ==
[2022-06-02 13:33] LABS: Basophils % 0.3 %; Eosinophils # 0.1 10^3/uL (0.0-0.8); Eosinophils % 2.1 %; Hematocrit 48.4 % (37.0-47.0); Hemoglobin 15.4 g/dL (11.5-15.3); Lymphocytes # 2.1 10^3/uL (0.8-4.8); Lymphocytes % 31.2 %; Mean Corpuscular HGB Conc 31.8 g/dL (30.0-36.0); Mean Corpuscular Hemoglobin 29.8 pg (28.0-34.0); Mean Corpuscular Volume 93.8 fl (81-99); Mean Platelet Volume 11.2 fL (7.4-10.4); Monocytes # 0.7 10^3/uL (0.2-0.9); Monocytes % 9.7 %; Neutrophils # 3.82 10^3/uL (1.8-7.7); Neutrophils % 56.4 %; Nucleated Red Blood Cells % 0 %; Platelet Count 228 10^3/cmm (130-400); Red Blood Count 5.16 10^6/uL (4.1-5.3); Red Cell Distribution Width 12.3 % (12.1-15.1); White Blood Count 6.8 10^3/uL (4.0-10.0)
[2022-06-02 13:55] LABS: Alanine Aminotransferase 15 U/L (0-33); Alkaline Phosphatase 71 U/L (35-105); Anion Gap 11.3 (5-19); Aspartate Amino Transferase 16 U/L (0-32); Blood Urea Nitrogen 16 mg/dL (8-23); Calcium 9.6 mg/dL (8.5-10.5); Carbon Dioxide 31 mmol/L (22-29); Chloride 99 mmol/L (98-107); Globulin 3.1 g/dL (1.3-4.6); Glucose 97 mg/dL (65-115); Osmolality Calculated 285 mOsm/kg (285-295); Potassium 4.3 mmol/L (3.5-5.1); Sodium 137 mmol/L (136-145); Total Bilirubin 0.5 mg/dL (0.15-1.2); Total Protein 7.1 g/dL (6.6-8.7)
== END 2022-06-10 23:59 | disposition home or self-care (01) ==
PROVIDERS: PCP Family Medicine; Visit Provider Internal Medicine Hematology & Oncology
DX: Z08 Encounter for follow-up examination after completed treatment for malignant neoplasm (principal); Z85.42 Personal history of malignant neoplasm of other parts of uterus; Z90.722 Acquired absence of ovaries, bilateral; G47.30 Sleep apnea, unspecified; R71.8 Other abnormality of red blood cells; F17.210 Nicotine dependence, cigarettes, uncomplicated; Z79.82 Long term (current) use of aspirin; Z79.899 Other long term (current) drug therapy; Z92.21 Personal history of antineoplastic chemotherapy; Z95.828 Presence of other vascular implants and grafts
CPT/HCPCS: 36415; 36591; 80053; 85025; 99214; 99215

== ENCOUNTER 2022-07-17 10:29 | Oncology outpatient (recurring) (ONCR) | payer MEDICARE, SELFPAY | END 2022-08-08 23:59 | disposition home or self-care (01) | PROVIDERS: PCP Family Medicine; Visit Provider Internal Medicine Hematology & Oncology | DX: Z45.2 Encounter for adjustment and management of vascular access device (principal) | CPT/HCPCS: 96523 ==

== ENCOUNTER 2022-09-04 14:08 | Oncology outpatient (recurring) (ONCR) | payer MEDICARE, SELFPAY ==
[2022-09-04 14:45] VITALS: BP 189/89; PULSE 62; RESP 18; TEMP 36.8; O2SAT 98
== END 2022-09-07 23:59 | disposition home or self-care (01) ==
LOC: ONCMED 14:08
PROVIDERS: PCP Family Medicine; Visit Provider Internal Medicine Hematology & Oncology
DX: Z45.2 Encounter for adjustment and management of vascular access device (principal)

== ENCOUNTER 2022-10-09 14:27 | Oncology outpatient (recurring) (ONCR) | payer MEDICARE, SELFPAY ==
[2022-10-09 15:14] VITALS: BP 173/77; PULSE 72; RESP 18; TEMP 37.2; O2SAT 92
== END 2022-11-07 23:59 | disposition home or self-care (01) ==
LOC: ONCMED 14:27
PROVIDERS: PCP Family Medicine; Visit Provider Internal Medicine Hematology & Oncology
DX: Z45.2 Encounter for adjustment and management of vascular access device (principal)
CPT/HCPCS: 96523; J1642

== ENCOUNTER 2022-11-20 14:16 | Oncology outpatient (recurring) (ONCR) | payer MEDICARE, SELFPAY ==
[2022-11-20 15:01] VITALS: BP 149/77; PULSE 68; RESP 18; TEMP 36.5; O2SAT 93
[2022-11-20 15:22] LABS: Basophils % 0.3 %; Eosinophils # 0.2 10^3/uL (0.0-0.8); Eosinophils % 2.3 %; Hematocrit 46.5 % (37.0-47.0); Hemoglobin 15.4 g/dL (11.5-15.3); Lymphocytes # 2.1 10^3/uL (0.8-4.8); Lymphocytes % 31.1 %; Mean Corpuscular HGB Conc 33.1 g/dL (30.0-36.0); Mean Corpuscular Hemoglobin 30.6 pg (28.0-34.0); Mean Corpuscular Volume 92.4 fl (81-99); Mean Platelet Volume 10.6 fL (7.4-10.4); Monocytes # 0.5 10^3/uL (0.2-0.9); Monocytes % 8.1 %; Neutrophils # 3.86 10^3/uL (1.8-7.7); Nucleated Red Blood Cells % 0 %; Platelet Count 260 10^3/cmm (130-400); Red Blood Count 5.03 10^6/uL (4.1-5.3); Red Cell Distribution Width 12.5 % (12.1-15.1); White Blood Count 6.7 10^3/uL (4.0-10.0)
[2022-11-20 15:42] LABS: Alanine Aminotransferase 15 U/L (0-33); Albumin Level 3.9 g/dL (3.5-5.2); Alkaline Phosphatase 61 U/L (35-105); Anion Gap 13.1 (5-19); Aspartate Amino Transferase 20 U/L (0-32); Blood Urea Nitrogen 16 mg/dL (8-23); Calcium 9.1 mg/dL (8.5-10.5); Carbon Dioxide 30 mmol/L (22-29); Chloride 100 mmol/L (98-107); Globulin 2.8 g/dL (1.3-4.6); Glucose 112 mg/dL (65-115); Osmolality Calculated 290 mOsm/kg (285-295); Potassium 4.1 mmol/L (3.5-5.1); Sodium 139 mmol/L (136-145); Total Bilirubin 0.3 mg/dL (0.15-1.2); Total Protein 6.7 g/dL (6.6-8.7)
== END 2022-12-08 23:59 | disposition home or self-care (01) ==
LOC: ONCMED 14:16
PROVIDERS: PCP Family Medicine; Visit Provider Internal Medicine Hematology & Oncology
DX: D45 Polycythemia vera (principal)
CPT/HCPCS: 36591; 80053; 85025; J1642

== ENCOUNTER 2023-01-01 14:27 | Oncology outpatient (recurring) (ONCR) | payer MEDICARE, SELFPAY | END 2023-01-08 23:59 | disposition home or self-care (01) | LOC: ONCMED 14:29 | PROVIDERS: PCP Family Medicine; Visit Provider Internal Medicine Hematology & Oncology | DX: Z45.2 Encounter for adjustment and management of vascular access device (principal) | CPT/HCPCS: 96523; J1642 ==

== ENCOUNTER 2023-01-29 14:48 | Oncology outpatient (recurring) (ONCR) | payer MEDICARE, SELFPAY ==
[2023-01-29 14:58] VITALS: BP 132/80; PULSE 97; RESP 16; TEMP 36.3; O2SAT 91
== END 2023-02-07 23:59 | disposition home or self-care (01) ==
LOC: ONCMED 14:49
PROVIDERS: PCP Family Medicine; Visit Provider Internal Medicine Medical Oncology
DX: Z45.2 Encounter for adjustment and management of vascular access device (principal)
CPT/HCPCS: 96523; J1642

== ENCOUNTER 2023-02-26 14:54 | Oncology outpatient (recurring) (ONCR) | payer MEDICARE, SELFPAY ==
[2023-02-26 15:20] VITALS: BP 121/72; PULSE 64; RESP 16; TEMP 37.2; O2SAT 93
== END 2023-03-10 23:59 | disposition home or self-care (01) ==
LOC: ONCMED 14:55
PROVIDERS: PCP Family Medicine; Visit Provider Internal Medicine Medical Oncology
DX: Z45.2 Encounter for adjustment and management of vascular access device (principal)
CPT/HCPCS: 96523; J1642

== ENCOUNTER 2023-03-26 14:58 | Oncology outpatient (recurring) (ONCR) | payer MEDICARE, SELFPAY ==
[2023-03-26 17:48] VITALS: BP 124/78; PULSE 78; RESP 18; TEMP 36.6; O2SAT 98
== END 2023-04-09 23:59 | disposition home or self-care (01) ==
PROVIDERS: PCP Family Medicine; Visit Provider Internal Medicine Medical Oncology
DX: Z45.2 Encounter for adjustment and management of vascular access device (principal)
CPT/HCPCS: 96523; J1642

== ENCOUNTER 2023-04-30 13:30 | Oncology outpatient (recurring) (ONCR) | payer MEDICARE, SELFPAY | END 2023-05-10 23:59 | disposition home or self-care (01) | PROVIDERS: PCP Family Medicine; Visit Provider Internal Medicine Hematology & Oncology | DX: Z53.9 Procedure and treatment not carried out, unspecified reason (principal) | CPT/HCPCS: 96523 ==

== ENCOUNTER 2023-05-12 13:37 | Outpatient (CLI) | payer MEDICARE, SELFPAY ==
--- NOTE | 2023-05-12 13:44 | USR_ITS ---
PROCEDURE INFORMATION: Exam: US Duplex Upper Extremity Arteries Exam date and time: 05/12/2023 2:03 PM Age: 82 years old Clinical indication: Screening exam; Tingling, numbness in hands; Additional info: Brachial plexus disorders TECHNIQUE: Imaging protocol: Real-time ultrasound scan of the arteries of the bilateral upper extremities with 2-D kang scale, color Doppler flow and spectral waveform analysis. Complete exam. COMPARISON: No relevant prior studies available. FINDINGS: Right subclavian artery: No occlusion or significant stenosis. Normal waveform. Right axillary artery: No occlusion or significant stenosis. Normal waveform. Right brachial artery: No occlusion or significant stenosis. Normal waveform. Right radial artery: No occlusion or significant stenosis. Normal waveform. Right ulnar artery: No occlusion or significant stenosis. Normal waveform. Left subclavian artery: No occlusion or significant stenosis. Normal waveform. Left axillary artery: No occlusion or significant stenosis. Normal waveform. Left brachial artery: No occlusion or significant stenosis. Normal waveform. Left radial artery: No occlusion or significant stenosis. Normal waveform. Left ulnar artery: No occlusion or significant stenosis. Normal waveform. US/[place] [id number] IMPRESSION: No arterial stenosis.
== END 2023-05-12 13:38 | disposition home or self-care (01) ==
LOC: RAD 13:38
PROVIDERS: PCP Family Medicine; Visit Provider Family Medicine
DX: G54.0 Brachial plexus disorders (principal)
CPT/HCPCS: 93930

== ENCOUNTER 2023-05-28 13:54 | Oncology outpatient (recurring) (ONCR) | payer MEDICARE, SELFPAY | END 2023-06-10 23:59 | disposition home or self-care (01) | PROVIDERS: PCP Family Medicine; Visit Provider Internal Medicine Hematology & Oncology | DX: Z45.2 Encounter for adjustment and management of vascular access device (principal) | CPT/HCPCS: 96523; J1642 ==

== ENCOUNTER 2023-07-16 12:26 | Oncology outpatient (recurring) (ONCR) | payer MEDICARE, SELFPAY ==
[2023-07-16 13:30] LABS: Basophils % 0.3 %; Eosinophils # 0.2 10^3/uL (0.0-0.8); Eosinophils % 2.5 %; Hematocrit 44.6 % (36-47); Lymphocytes # 1.8 10^3/uL (0.8-4.8); Lymphocytes % 29.6 %; Mean Corpuscular HGB Conc 33.6 g/dL (30-55); Mean Corpuscular Hemoglobin 30.8 pg (27-33); Mean Corpuscular Volume 91.6 fl (85-98); Mean Platelet Volume 10.7 fL (7.4-10.4); Monocytes # 0.4 10^3/uL (0.2-0.9); Neutrophils # 3.68 10^3/uL (1.8-7.7); Neutrophils % 60.3 %; Nucleated Red Blood Cells % 0 %; Platelet Count 284 10^3/cmm (157-399); Red Blood Count 4.87 10^6/uL (3.85-5.65); Red Cell Distribution Width 12.6 % (12.1-15.1); White Blood Count 6.11 10^3/uL (3.29-11.43)
[2023-07-16 14:04] LABS: Alanine Aminotransferase 12 U/L (0-33); Albumin Level 3.8 g/dL (3.5-5.2); Alkaline Phosphatase 66 U/L (35-105); Anion Gap 15.8 (5-19); Aspartate Amino Transferase 15 U/L (0-32); Blood Urea Nitrogen 17 mg/dL (8-23); Calcium 8.9 mg/dL (8.5-10.5); Carbon Dioxide 29 mmol/L (22-29); Chloride 96 mmol/L (98-107); Glucose 195 mg/dL (65-115); Osmolality Calculated 291 mOsm/kg (285-295); Potassium 3.8 mmol/L (3.5-5.1); Sodium 137 mmol/L (136-145); Total Bilirubin 0.3 mg/dL (0.15-1.2); Total Protein 6.8 g/dL (6.6-8.7)
== END 2023-08-09 23:59 | disposition home or self-care (01) ==
PROVIDERS: Internal Medicine; PCP Family Medicine; Visit Provider Internal Medicine Medical Oncology
DX: C56.9 Malignant neoplasm of unspecified ovary (principal); Z79.899 Other long term (current) drug therapy
CPT/HCPCS: 36591; 80053; 85025; 99213; J1642

== ENCOUNTER 2023-08-20 13:55 | Oncology outpatient (recurring) (ONCR) | payer MEDICARE, SELFPAY | END 2023-09-08 23:59 | disposition home or self-care (01) | LOC: ONCMED 13:56 | PROVIDERS: PCP Family Medicine; Visit Provider Internal Medicine Medical Oncology | DX: Z45.2 Encounter for adjustment and management of vascular access device (principal) | CPT/HCPCS: 96523 ==

== ENCOUNTER 2023-09-11 14:48 | Outpatient (CLI) | payer MEDICARE, SELFPAY ==
--- NOTE | 2023-09-11 14:57 | XR_ITS ---
WS: [id number] SCREENING DEXA SCAN [employer] CLINICAL INFORMATION: POSTMENOPAUSAL STATE COMPARISON: None. FINDINGS: The L1-L4 bone mineral density measures 1.52. This corresponds to a T score score of 2.7 and Z score of 3.7. Left femoral neck bone mineral density measures 0.852 g/cm2. This corresponds to a T score of -1.2 an d Z score of 0.3. Right femoral neck bone mineral density measures 0.973 g/cm2. This corresponds to a T score -0.3of an d Z score of 1.2. Mean femoral neck bone mineral density measures 0.913 g/cm2. This corresponds to a T score of -0.8 an d Z score of 0.8. XR/XR DEXA axial skeleton* [id number] IMPRESSION: Normal bone mineralization. Patient's FRAX calculated 10 year probability for major osteoporotic fracture i s 19.0% and osteoporotic hip fracture is 9.4%.
== END 2023-09-11 14:49 | disposition home or self-care (01) ==
LOC: RAD 14:49
PROVIDERS: PCP Family Medicine; Visit Provider Family Medicine
DX: Z78.0 Asymptomatic menopausal state (principal)
CPT/HCPCS: 77080

== ENCOUNTER 2023-09-17 14:20 | Oncology outpatient (recurring) (ONCR) | payer MEDICARE, SELFPAY | END 2023-10-09 23:59 | disposition home or self-care (01) | LOC: ONCMED 14:22 | PROVIDERS: PCP Family Medicine; Visit Provider Internal Medicine Medical Oncology | DX: Z45.2 Encounter for adjustment and management of vascular access device (principal) | CPT/HCPCS: 96523 ==

== ENCOUNTER 2023-10-15 14:15 | Oncology outpatient (recurring) (ONCR) | payer MEDICARE, SELFPAY ==
[2023-10-15 15:17] LABS: Alanine Aminotransferase 14 U/L (0-33); Alkaline Phosphatase 66 U/L (35-105); Aspartate Amino Transferase 17 U/L (0-32); Blood Urea Nitrogen 15 mg/dL (8-23); Calcium 9.1 mg/dL (8.5-10.5); Carbon Dioxide 30 mmol/L (22-29); Chloride 99 mmol/L (98-107); Chol HDL Ratio 4.85 mg/dL (0.0-4.40); Cholesterol 291 mg/dL (0-200); Glucose 95 mg/dL (65-115); HDL Cholesterol 60 mg/dL (60-100); LDL Cholesterol Calculated 203 mg/dL (50-129); LDL HDL Ratio 3.38 RATIO (0.00-3.22); Osmolality Calculated 291 mOsm/kg (285-295); Sodium 140 mmol/L (136-145); Total Bilirubin 0.4 mg/dL (0.15-1.2); Triglycerides 139 mg/dL (0-150)
== END 2023-11-08 23:59 | disposition home or self-care (01) ==
PROVIDERS: PCP Family Medicine; Visit Provider Internal Medicine Medical Oncology
DX: C56.9 Malignant neoplasm of unspecified ovary (principal)
CPT/HCPCS: 36591; 80053; 80061

== ENCOUNTER 2023-11-26 14:19 | Oncology outpatient (recurring) (ONCR) | payer MEDICARE, SELFPAY | END 2023-12-09 23:59 | disposition home or self-care (01) | LOC: ONCMED 14:19 | PROVIDERS: PCP Family Medicine; Visit Provider Internal Medicine Medical Oncology | DX: C56.9 Malignant neoplasm of unspecified ovary (principal) | CPT/HCPCS: 96523 ==

== ENCOUNTER 2023-12-31 14:36 | Oncology outpatient (recurring) (ONCR) | payer MEDICARE, SELFPAY ==
--- NOTE | 2023-12-31 15:09 | PC.NURSE ---
Port Flush 12/31/23 Patient scheduled today for port flush. Upon accessing port-a-cath, patient stated that flushing was uncomfortable. This nurse attempted to aspirate for blood return and obtained only scant amount of blood-tinged saline. Visible swelling around the port was noted. This nurse notified PERRI Musa for referral to general surgery regarding this finding.
== END 2024-01-09 23:55 | disposition home or self-care (01) ==
PROVIDERS: PCP Family Medicine; Visit Provider Internal Medicine Medical Oncology
DX: C56.9 Malignant neoplasm of unspecified ovary (principal)
CPT/HCPCS: 96523

== ENCOUNTER → 2024-01-04 14:39 | Outpatient (BNVA) | payer MEDICARE, SELFPAY | PROVIDERS: PCP Family Medicine; Referring Provider Internal Medicine Medical Oncology; Visit Provider Surgery | DX: C56.9 Malignant neoplasm of unspecified ovary (principal); Z45.2 Encounter for adjustment and management of vascular access device | CPT/HCPCS: 36590; 99204 ==

== ENCOUNTER 2024-01-26 14:21 | Inpatient (IN) | payer MEDICARE, SELFPAY ==
[2024-01-26 14:29] VITALS: BP 88/53; PULSE 63; RESP 16; TEMP 36.4; O2SAT 96; BMI 32.4
--- NOTE | 2024-01-26 15:29 | ED_ITS ---
HPI - Weakness 2 General: Chief complaint: Weakness Stated complaint: low BP, dehydration, vomitting, diarrhea Time Seen by Provider: 01/26/24 14:31 History of Present Illness: 83-year-old female with a history of hyp ertension who presents emergency room with weakness. He says he started with diarrhea about a week ago which is since resolved. Now she just has generalized weakness. She had some nausea and vomiting initially. None now. No abdominal pain. No chest pain. No altered mental status. No focal motor deficits. No fevers. No cough. She describes her stools as dark and tarry. No abdominal pain at this point. Review of Systems 2 Narrative: Constitutional symptoms: Negative except as documented in HPI. Skin symptoms: Negative except as documented in HPI. Eye symptoms: Negative except as documented in HPI. ENMT symptoms: Negative except as documented in HPI. Respiratory symptoms: Negative except as documented in HPI. Cardiovascular symptoms: Negative except as documented in HPI. Gastrointestinal symptoms: Negative except as documented in HPI. Genitourinary symptoms: Negative except as documented in HPI. Musculoskeletal symptoms: Negative except as documented in HPI. Neurologic symptoms: Negative except as documented in HPI. Psychiatric symptoms: Negative except as documented in HPI. Endocrine symptoms: Negative except as documented in HPI. PFS ED 2 PFS: Medical History (Updated 01/26/24 @ 16:13 by Karol Paz MD) Endometrioid adenocarcinoma of ovary Family History Mother CAD (coronary artery disease) Aneurism Son Cancer at 25 with melanoma Son No problems noted. Sister Stroke Other Hyperlipidemia Hypertension Lung disease Denies family history of Diabetes Clotting disorder Dementia Psychiatric illness Chronic kidney disease (CKD) Suicide Anesthesia complication Bleeding disorder Social History Smoking and tobacco/nicotine status: current every day tobacco/nicotine user cigarettes Packs smoked per day: 0.5 Years cigarettes smoked: 30 Current gender identity: Female Physical Exam 2 Narrative: EXAM NARRATIVE: General: Alert, no acute distress. Skin: Warm, dry. Head: Normocephalic, atraumatic. Neck: Supple, trachea midline. Eye: Extraocular movements are intact. Ears, nose, mouth and throat: Tacky oral mucosa Cardiovascular: Regular, Normal peripheral perfusion. Respiratory: Lungs are clear to auscultation, respirations are non-labored, breath sounds are equal, Symmetrical chest wall expansion. Gastrointestinal: Soft, Nontender, Non distended Musculoskeletal: Normal ROM, no deformity. Neurological: Alert and oriented, No focal neurological deficit observed. Psychiatric: Cooperative, appropriate mood & affect. Course 2 Vital Signs: Vital signs: Vital Signs Temperature 97.5 F L 01/26/24 14:29 Pulse Rate 67 01/26/24 16:01 Respiratory Rate 16 01/26/24 14:29 Blood Pressure 118/61 01/26/24 16:01 Pulse Oximetry 95 01/26/24 16:01 Oxygen Delivery Me thod Room Air 01/26/24 16:01 MDM - Weakness Medical Decision Making Medical decision making: Differential diagnosis for patient presenting with generalized weakness including but not limited to and based on the above HPI, review of systems and physical exam: Sepsis. Dehydration. Renal failure. Electrolyte abnormalities. Anemia. Congestive heart failure. Hypotension. Coronary syndrome. Hepatitis. Cirrhosis. Infections such as pneumonia, urinary tract infection, [place]ne illness, Cellulitis, Viral infections including influenza and Covid-19. Workup: labwork and lab/exam driven imaging ordered to evaluate, rule in and rule out above pathologies. Lab Review: Laboratory results were reviewed and interpreted by myself the emergency room physician. No leukocytosis. However patient has a hemoglobin of 9 which is significantly lower than several months back which was 15. Her BUN and creatinine are 55 and 1.2. Over the settings of 0.2 she has had recent upper GI bleeding and acute blood loss anemia. Respiratory panel was negative. I reviewed the patient's medical record. Reexamination: Patient's blood pressure has improved from 88 systolic to 119. She is remained stable. No focal medical deficits. No increased work of breathing. No altered mental status. Consultation: I spoke with Dr. Colon who agrees to consultation and will plan to do upper endoscopy. He agrees with Protonix. Consultation: I spoke with Dr. Schultz who agrees to admission. Assessment and plan: Upper GI bleeding Anemia Hypotension ?IV normal saline bolus. 80 mg IV Protonix. -I discussed the patient with the hospitalist on-call who is admitting the patient. - Discussed findings and plan with patient. Answered any questions. - All laboratory values were reviewed and interpreted personally by myself, the ER physician - All imaging was reviewed and interpreted personally by myself, the ER physician. - Evaluation and treatment of this problem were appropriate in the emergency setting Lab Data 01/26/24 15:19 01/26/24 15:19 Laboratory Results WBC 9.79 10^3/uL (3.29-11.43) 01/26/24 15:19 RBC 2.91 10^6/uL (3.85-5.65) L 01/26/24 15:19 Hgb 9.10 g/dL (11.27-16.99) L 01/26/24 15:19 Hct 28.3 % (36-47) L 01/26/24 15:19 MCV 97.3 fl (85-98) 01/26/24 15:19 MCH 31.3 pg (27-33) 01/26/24 15:19 MCHC 32.2 g/dL (30-55) 01/26/24 15:19 RDW 12.9 % (12.1-15.1) 01/26/24 15:19 Plt Count 289 10^3/cmm (157-399) 01/26/24 15:19 MPV 11.1 fL (7.4-10.4) H 01/26/24 15:19 Neut % (Auto) 72.8 % 01/26/24 15:19 Lymph % (Auto) 17.2 % 01/26/24 15:19 [place] % (Auto) 8.5 % 01/26/24 15:19 Eos % (Auto) 0.9 % 01/26/24 15:19 Baso % (Auto) 0.1 % 01/26/24 15:19 Neut # (Auto) 7.13 10^3/uL (1.8-7.7) 01/26/24 15:19 Lymph # (Auto) 1.7 10^3/uL (0.8-4.8) 01/26/24 15:19 [place] # (Auto) 0.8 10^3/uL (0.2-0.9) 01/26/24 15:19 Eos # (Auto) 0.1 10^3/uL (0.0-0.8) 01/26/24 15:19 Baso # (Auto) 0.0 10^3/uL (0.0-0.1) 01/26/24 15:19 Nucleated RBC % (auto) 0 % 01/26/24 15:19 Nucleated RBCs # 0.0 /100WBC 01/26/24 15:19 Sodium 138 mmol/L (136-145) 01/26/24 15:19 Potassium 4.2 mmol/L (3.5-5.1) 01/26/24 15:19 Chloride 100 mmol/L (98-107) 01/26/24 15:19 Carbon Dioxide 26 mmol/L (22-29) 01/26/24 15:19 Anion Gap 16.2 (5-19) 01/26/24 15:19 BUN 55 mg/dL (8-23) H 01/26/24 15:19 Creatinine 1.2 mg/dL (0.5-0.9) H 01/26/24 15:19 GFR Calculation Not Reportable 01/26/24 15:19 Glucose 107 mg/dL (65-115) 01/26/24 15:19 Calculated Osmolality 302 mOsm/kg (285-295) H 01/26/24 15:19 Lactic Acid 2.2 mmol/L (0.5-2.2) 01/26/24 15:28 Calcium 8.6 mg/dL (8.5-10.5) 01/26/24 15:19 Total Bilirubin 0.4 mg/dL (0.15-1.2) 01/26/24 15:19 AST 16 U/L (0-32) 01/26/24 15:19 ALT 8 U/L (0-33) 01/26/24 15:19 Alkaline Phosphatase 59 U/L (35-105) 01/26/24 15:19 C-Reactive Protein 7.8 mg/L (0.0-4.9) H 01/26/24 15:19 Total Protein 6.2 g/dL (6.6-8.7) L 01/26/24 15:19 Albumin 3.5 g/dL (3.5-5.2) 01/26/24 15:19 Globulin 2.7 g/dL (1.3-4.6) 01/26/24 15:19 Lipase 49 U/L (13-60) 01/26/24 15:19 Amorphous Sediment Not Reportable 01/26/24 15:55 Coronavirus (PCR) Error (Negative) 01/26/24 15:48 Influenza A (PCR) Error (Negative) 01/26/24 15:48 Influenza Type B (PCR) Error (Negative) 01/26/24 15:48 RSV (PCR) Error (Negative) 01/26/24 15:48 No radiology studies performed this visit Discharge Plan Discharge Patient Disposition: Admitted As Inpatient Admit Provider: John Huerta Clinical Impression: Acute upper gastrointestinal bleeding, Anemia Condition: Stable Coding Level of Care Code ED Medical Transcription Supervisor for Chg Fwd Related Data Home Medications Medication Instructions Recorded Confirmed citalopram 40 mg tablet 40 mg PO DAILY@04/21/20 01/04/24 lisinopril 40 mg tablet 40 mg PO DAILY@04/21/20 01/04/24 lorazepam 0.5 mg tablet 0.5 - 0.75 mg PO DAILY@04/21/20 01/04/24 metoprolol succinate 100 mg 100 mg PO Q12H 04/21/20 01/04/24 tablet,extended release 24 hr tiotropium bromide 2.5 2 puff inhalation DAILY PRN unknown 04/21/20 01/04/24 mcg/actuation mist for inhalation (Spiriva Respimat) hydrochlorothiazide 25 mg tablet mg PO 07/16/23 01/04/24 Previous Rx's Medication Instructions Recorded ondansetron 4 mg disintegrating 4 mg PO Q6H PRN nausea and 04/21/20 tablet vomiting #14 tabs Allergies Allergy/AdvReac Type Severity Reaction Status Date / Time codeine Allergy ADR-Nausea Verified 01/04/24 14:43
[2024-01-26 15:36] LABS: Basophils % 0.1 %; Eosinophils # 0.1 10^3/uL (0.0-0.8); Eosinophils % 0.9 %; Hematocrit 28.3 % (36-47); Lymphocytes # 1.7 10^3/uL (0.8-4.8); Lymphocytes % 17.2 %; Mean Corpuscular HGB Conc 32.2 g/dL (30-55); Mean Corpuscular Hemoglobin 31.3 pg (27-33); Mean Corpuscular Volume 97.3 fl (85-98); Mean Platelet Volume 11.1 fL (7.4-10.4); Monocytes # 0.8 10^3/uL (0.2-0.9); Monocytes % 8.5 %; Neutrophils # 7.13 10^3/uL (1.8-7.7); Neutrophils % 72.8 %; Nucleated Red Blood Cells % 0 %; Platelet Count 289 10^3/cmm (157-399); Red Blood Count 2.91 10^6/uL (3.85-5.65); Red Cell Distribution Width 12.9 % (12.1-15.1); White Blood Count 9.79 10^3/uL (3.29-11.43)
[2024-01-26 15:57] LABS: Lactic Sepsis W/Reflex 2.2 mmol/L (0.5-2.2)
[2024-01-26 15:58] LABS: Alanine Aminotransferase 8 U/L (0-33); Albumin Level 3.5 g/dL (3.5-5.2); Alkaline Phosphatase 59 U/L (35-105); Aspartate Amino Transferase 16 U/L (0-32); Blood Urea Nitrogen 55 mg/dL (8-23); C Reactive Protein 7.8 mg/L (0.0-4.9); Calcium 8.6 mg/dL (8.5-10.5); Carbon Dioxide 26 mmol/L (22-29); Chloride 100 mmol/L (98-107); Creatinine Clr Calc Pharmacy 36.8853; Globulin 2.7 g/dL (1.3-4.6); Glucose 107 mg/dL (65-115); Lipase 49 U/L (13-60); Osmolality Calculated 302 mOsm/kg (285-295); Sodium 138 mmol/L (136-145); Total Bilirubin 0.4 mg/dL (0.15-1.2); Total Protein 6.2 g/dL (6.6-8.7)
[2024-01-26 15:59] LABS: Anion Gap 16.2 (5-19); Potassium 4.2 mmol/L (3.5-5.1)
[2024-01-26 16:01] VITALS: BP 118/61; PULSE 67; O2SAT 95
[2024-01-26 16:28] LABS: Bilirubin Urine Neg (Negative); Blood Urine 2+ (Negative); Glucose Urine UA Norm (Normal); Ketones Urine Negative (Negative); Leukocyte Esterase Urine 1+ (Negative); Nitrate Urine Negative (Negative); Protein Urine Neg (Negative); Specific Gravity, Urine 1.015 (1.005-1.030); Urine Appearance Slightly Cloudy (CLEAR); Urine Color Yellow (Yellow); Urobilinogen Urine Norm (Negative); pH Urine 5 (5-7)
[2024-01-26 16:29] LABS: Add Urine Culture? Yes; Bacteria Urine TRACE /hpf; RBC Urine 0-4 /hpf (0-2); Squamous Epithelial Cell Urine 0-4 /hpf (0-5)
[2024-01-26 16:43] LABS: INR 0.96 (0.8-1.2)
[2024-01-26 16:44] LABS: Partial Thromboplastin Time 23.7 SECONDS (23.9-36.7)
[2024-01-26] MEDS: ondansetron 2 mg/ML SDV 2 mL 8 MG IVP (16:59)
[2024-01-26] MEDS: sodium chloride 0.9% 1,000 ML 999 ML IV (16:59)
[2024-01-26] MEDS: pantoprazole 40 mg SDV 80 MG IVP (17:00)
[2024-01-26 17:19] LABS: Reflex Lactate Order REFLEX LACTIC ORDERD
[2024-01-26 17:23] VITALS: BP 94/55; O2SAT 98
[2024-01-26 17:36] VITALS: BP 90/50; PULSE 67; O2SAT 97
[2024-01-26 17:40] VITALS: BMI 32.4
[2024-01-26 17:50] VITALS: O2SAT 96
[2024-01-26 17:52] LABS: Covid PCR Positive (Negative); Influenza A NEGATIVE (Negative); Influenza B NEGATIVE (Negative); Respiratory Syncytial Virus Ce NEGATIVE (Negative)
--- NOTE | 2024-01-26 17:56 | XRR_ITS ---
PROCEDURE INFORMATION: Exam: XR Chest Exam date and time: 01/26/2024 6:10 PM Age: 83 years old Clinical indication: Other: Covid; Additional info: Covid positive TECHNIQUE: Imaging protocol: Radiologic exam of the chest. Views: 1 view. COMPARISON: CR XR chest 2V* [id number] 09/16/2018 10:59 AM FINDINGS: Tubes, catheters and devices: Overlying monitoring leads. Lungs: Unremarkable. No consolidation. Pleural spaces: Unremarkable. No pleural effusion. No pneumothorax. Heart/Mediastinum: Unremarkable. No cardiomegaly. Bones/joints: Unremarkable. XR/XR chest 1V portable [id number] IMPRESSION: No acute cardiopulmonary findings.
--- NOTE | 2024-01-26 17:58 | P.HP_ITS ---
Providers/Chief Complaint 2 Admitting Physician: John Huerta MD Primary Care Provider: Jared Casanova MD Chief Complaint: low BP, dehydration, vomitting, diarrhea History of Present Illness Leonora Gupta is a 83 year old female with past medical history of hypertension, depression presented to be today because of feeling weak, tired over the last 1 week. Patient started feeling sick last Thursday around 8 days ago with episodes of nausea vomiting and diarrhea. Last diarrheal bowel movement was 3 days ago. Bowel movements are black and tarry in nature. Has not had any further bowel movements for last 2 days. She is passing flatus. Denies of having abdominal pain. Complains of feeling weak, tired and dizzy. Granddaughter lives with her does have symptoms of sinusitis and was tested negative for COVID 2 days ago. Patient herself denies headache. Does complain of occasional difficulty in breathing. In the ER she was found to have hypotension requiring 1 L of bolus after which her blood pressure improved to 100 systolic. Current on examination she is awake and alert on 1 L of oxygen supplementation with heart of 67 bpm and blood pressure of 96 over 60 mmHg. Review of Systems 2 General: Reports: 10 or more systems reviewed and unremarkable except in HPI and below Const: Denies: fever(s), chills, body aches, change in appetite, change in weight, malaise, night sweats, diaphoresis, change in sleep pattern, daytime sleepiness or snoring Eyes: Denies: change in vision, blurry vision, photophobia, eye discomfort or eye discharge ENMT: Denies: throat pain, enlarged tonsils, hoarseness, mouth pain, oral sores, dry mouth, tinnitus, nasal congestion or post nasal drip Card: Denies: chest pain, palpitations, irregular heart rhythm, edema, swelling of feet/ankles, lightheadedness, syncope, pre-syncope, dyspnea on exertion, orthopnea, leg pain with exertion or acrocyanosis Resp: Denies: dyspnea, productive cough, non-productive cough, wheezing, stridor, pain on inspiration, change in phlegm color, hemoptysis or chest congestion GI: Denies: abdominal pain, nausea, vomiting, hematemesis, coffee ground emesis, dysphagia, heartburn, diarrhea, constipation, bloating, GI cramping, change in bowel habits, pain on defecation, hematochezia or melena : Denies: flank pain, dysuria, urinary frequency, urinary urgency, urinary hesitancy, nocturia or hematuria Musc: Denies: neck pain, back pain, extremity pain, joint pain, joint swelling, joint redness, joint stiffness or limited range of motion Neuro: Denies: headache(s), numbness in extremities, weakness in extremities, sensory changes, lack of coordination, difficulty walking, frequent falls, dizziness, vertigo, confusion, Slurred speech present, difficulty communicating thoughts or seizure-like activity Psych: Denies: anxiety, depression, mood swings, panic attacks, hopelessness or irritability Endo: Denies: polyuria, polydipsia, tired all the time, cold intolerance, excessive sweating, flushing or heat intolerance Smooth/Lymph: Denies: easy bruising or easy bleeding All/Imm: Denies: tongue swelling, facial swelling or acute wheezing Medications/Allergies Home Medications Medication Instructions Recorded Confirmed Last Taken Type citalopram 40 mg tablet 40 mg PO DAILY@04/21/20 01/26/24 01/25/24 History lisinopril 40 mg tablet 40 mg PO DAILY@04/21/20 01/26/24 01/25/24 History lorazepam 0.5 mg tablet 0.5 - 0.75 mg PO 2100 04/21/20 01/26/24 01/25/24 History metoprolol succinate 100 mg 200 mg PO DAILY 04/21/20 01/26/24 01/25/24 History tablet,extended release 24 hr ondansetron 4 mg disintegrating 4 mg PO Q6H PRN nausea and 04/21/20 01/26/24 Unknown Rx tablet vomiting #14 tabs tiotropium bromide 2.5 2 puff inhalation DAILY PRN unknown 04/21/20 01/26/24 01/25/24 History mcg/actuation mist for inhalation (Spiriva Respimat) hydrochlorothiazide 25 mg tablet 25 mg PO DAILY 07/16/23 01/26/24 01/25/24 History albuterol sulfate 90 mcg/actuation 2 puff inhalation Q4H PRN sob 01/26/24 01/26/24 01/25/24 History aerosol inhaler aspirin 81 mg chewable tablet 81 mg PO DAILY 01/26/24 01/26/24 Unknown History Allergies Allergy/AdvReac Type Severity Reaction Status Date / Time codeine Allergy ADR-Nausea Verified 01/04/24 14:43 PFSH Acute 2 PFSH: Medical History (Updated 01/26/24 @ 18:01 by John Huerta MD) Endometrioid adenocarcinoma of ovary Surgical History (Updated 01/26/24 @ 18:01 by John Huerta MD) History of hysterectomy History of bilateral oophorectomy Hx of colonoscopy 5 years ago Family History Mother CAD (coronary artery disease) Aneurism Son Cancer at 25 with melanoma Son No problems noted. Sister Stroke Other Hyperlipidemia Hypertension Lung disease Denies family history of Diabetes Clotting disorder Dementia Psychiatric illness Chronic kidney disease (CKD) Suicide Anesthesia complication Bleeding disorder Social History Smoking and tobacco/nicotine status: current every day tobacco/nicotine user cigarettes Packs smoked per day: 0.5 Years cigarettes smoked: 30 Current gender identity: Female Vitals/I&O/Wt Last Vital Signs Temp 97.5 F L 01/26/24 14:29 Pulse 67 01/26/24 17:36 Resp 16 01/26/24 14:29 BP 90/50 01/26/24 17:36 Pulse Ox 96 01/26/24 17:50 O2 Del Method Nasal Cannula 01/26/24 17:50 Weight last 48 hrs Weight 83.007 kg Weight 83.007 kg Physical Exam 2 Narrative: General: No acute distress, AO x3, pallor present, flat affect HEENT: PERRLA, pupils bilaterally equal and reactive Chest: Normal vesicular breath sounds, no added sounds, equal good air entry bilaterally CVS: S1-S2 regular, no murmurs, no tachycardia, no gallops, no rubs Abdomen: Soft, nontender, no organomegaly, bowel sounds present Neuro: No focal deficits, no facial deformity, AO x3, power 5/5 in all limbs Data 01/26/24 15:19 01/26/24 15:19 Micro: Microbiology 01/26/24 15:28 Blood Culture - Preliminary Blood SPECIMEN COLLECTED 01/26/24 15:19 Blood Culture - Preliminary Blood SPECIMEN COLLECTED A&P Assessment and plan (1) Anemia: Most likely in setting of upper GI bleed. Did have diarrhea or blood in vomitus or black and tarry in nature for 5 days around 2 days ago. Protonix 40 mg twice daily. Zofran as needed. Surgery has been consulted for possible endoscopy and colonoscopy. Clear liquid diet. N.p.o. after midnight. Check hemoglobin hematocrit every 6 hour. Target hemoglobin more than 7. If needed will transfuse accordingly. Did have mild hypotension on presentation. Continue with and normal saline at 75 cc/h. Maintain mean artery pressure over 65. (2) Acute upper gastrointestinal bleeding: (3) COVID-19: Hypoxia secondary to COVID-19 pneumonia: Mild disease. Oxygen supplementation keeping saturation over 88%. Dexamethasone 6 mg daily. Remdesivir to finish a 3-5-day course. DuoNeb as needed Pulmonary toilet with incentive spirometry flutter valve. Check D-dimer and CRP. Monitor CRP every 48 hours. Check chest x-ray. Check sputum culture, procalcitonin. Low concerns for bacterial pneumonia for now. (4) TIM (acute kidney injury): Baseline creatinine about 0.7. Currently 1.2. Normal saline as above. Monitor BMP daily. No electrode normalities for now. (5) Difficulty breathing: (6) Diarrhea: Plan CODE STATUS: Discussed noted with the patient. Granddaughter will be the DPOA. DNR/DNI. Clear liquid diet, n.p.o. from midnight Protonix will be sufficient for PUD prophylaxis SCD for DVT prophylaxis. Attestations 2 Medical Necessity Statement*: Admission for more than 2 midnights for management of anemia in setting of upper GI bleed requiring endoscopy, difficulty breathing in setting of COVID-19 Diagnoses Anemia D64.9 Acute upper gastrointestinal bleeding K92.2 COVID-19 U07.1 TIM (acute kidney injury) N17.9 Difficulty breathing R06.89 Diarrhea R19.7
[2024-01-26 18:23] LABS: D Dimer 0.64 ug/mLFEU (0-0.59)
--- NOTE | 2024-01-26 18:52 | P.CONIM_ITS ---
Providers/Reason For Consult 2 Consulting Physician/Specialty*: General SUrgery Reason for Consult*: suspected upper GI bleeding Attending Physician: John Huerta MD Primary Care Provider: Jared Casanova MD History of Present Illness History of Present Illness Leonora Gupta is a 83 year old female who presented to the ER with weakness, anemia and loose stools. noted to have a drop of 5 points in hemoglobin over the last 3 months and possible melena, I was consulted for evaluation for possible GI bleeding Review of Systems 2 General: Reports: 10 or more systems reviewed and unremarkable except in HPI and below Medications/Allergies Home Medications Medication Instructions Recorded Confirmed Last Taken Type citalopram 40 mg tablet 40 mg PO DAILY@04/21/20 01/26/24 01/25/24 History lisinopril 40 mg tablet 40 mg PO DAILY@04/21/20 01/26/24 01/25/24 History lorazepam 0.5 mg tablet 0.5 - 0.75 mg PO 2100 04/21/20 01/26/24 01/25/24 History metoprolol succinate 100 mg 200 mg PO DAILY 04/21/20 01/26/24 01/25/24 History tablet,extended release 24 hr ondansetron 4 mg disintegrating 4 mg PO Q6H PRN nausea and 04/21/20 01/26/24 Unknown Rx tablet vomiting #14 tabs tiotropium bromide 2.5 2 puff inhalation DAILY PRN unknown 04/21/20 01/26/24 01/25/24 History mcg/actuation mist for inhalation (Spiriva Respimat) hydrochlorothiazide 25 mg tablet 25 mg PO DAILY 07/16/23 01/26/24 01/25/24 History albuterol sulfate 90 mcg/actuation 2 puff inhalation Q4H PRN sob 01/26/24 01/26/24 01/25/24 History aerosol inhaler aspirin 81 mg chewable tablet 81 mg PO DAILY 01/26/24 01/26/24 Unknown History Allergies Allergy/AdvReac Type Severity Reaction Status Date / Time codeine Allergy ADR-Nausea Verified 01/04/24 14:43 PFSH Acute 2 PFSH: Medical History (Updated 01/26/24 @ 18:01 by John Huerta MD) Endometrioid adenocarcinoma of ovary Surgical History (Updated 01/26/24 @ 18:01 by John Huerta MD) History of hysterectomy History of bilateral oophorectomy Hx of colonoscopy 5 years ago Family History Mother CAD (coronary artery disease) Aneurism Son Cancer at 25 with melanoma Son No problems noted. Sister Stroke Other Hyperlipidemia Hypertension Lung disease Denies family history of Diabetes Clotting disorder Dementia Psychiatric illness Chronic kidney disease (CKD) Suicide Anesthesia complication Bleeding disorder Social History Smoking and tobacco/nicotine status: current every day tobacco/nicotine user cigarettes Packs smoked per day: 0.5 Years cigarettes smoked: 30 Current gender identity: Female Vitals/I&O/Wt Last Vital Signs Temp 97.5 F L 01/26/24 14:29 Pulse 67 01/26/24 17:36 Resp 16 01/26/24 14:29 BP 90/50 01/26/24 17:36 Pulse Ox 96 01/26/24 17:50 O2 Del Method Nasal Cannula 01/26/24 17:50 01/26/24 01/26/24 01/26/24 06:59 14:59 22:59 Intake Total 1000 / 1000 Balance 1000 / 1000 Weight last 48 hrs Weight 183 lb Weight 183 lb Physical Exam 2 GI: OTHER: abdomen is soft, non tender and non distended Data 01/26/24 15:19 01/26/24 15:19 Micro: Microbiology 01/26/24 15:28 Blood Culture - Preliminary Blood SPECIMEN COLLECTED 01/26/24 15:19 Blood Culture - Preliminary Blood SPECIMEN COLLECTED A&P Assessment and plan (1) Acute upper gastrointestinal bleeding: patient with suspected uppe GI bleeding. will be admitted for medical management and monitoring and we will plan on upper endoscopy tomorrow. all risk and benefits were discussed with patient and family member. - high dose PPI -NPO aftrer midnight -trend hemoglobin -medical management per primary Coding Level of Care Code 05438 Diagnoses Acute upper gastrointestinal bleeding K92.2
[2024-01-26 18:55] LABS: Procalcitonin 0.05 ng/mL (0-0.5); Thyroid Stimulating Hormone 0.46 uIU/mL (0.27-4.20); Vitamin B12 516 pg/mL (232-1245)
[2024-01-26 19:06] LABS: C Reactive Protein 8.7 mg/L (0.0-4.9); Iron 34 ug/dL (37-145); Percent Saturation 12.8 % (20-50); Total Iron Binding Capacity 264 mcg/dl; Unsaturated Iron Binding 230 ug/dL (112-347)
[2024-01-26 19:09] LABS: Hematocrit 26.6 % (36-47)
[2024-01-26 19:38] LABS: Lactic Acid level (Lactate) 2.3 mmol/L (0.5-2.2)
[2024-01-26 20:00] VITALS: BP 95/50; PULSE 71; PULSE 72; RESP 17; TEMP 36.8; O2SAT 91; O2SAT 94
[2024-01-26] MEDS: dexamethasone 10 mg/mL INJ 6 MG IVP (20:05)
[2024-01-26] MEDS: LORazepam 0.5 mg Tablet PO (20:06)
[2024-01-26] MEDS: sodium chloride 0.9% 1,000 ML 30 ML IV (20:06)
[2024-01-26] MEDS: remdesivir 200 MG in sodium chloride 0.9% (100 ml) 60 ML 100 MG IV (20:57)
[2024-01-27] VITALS (67 sets, daily range): BP systolic 82–119; BP diastolic 41–73; PULSE 65–95; RESP 14–27; TEMP 36.1–37.3; O2SAT 91–99
[2024-01-27 01:48] LABS: Hematocrit 24.5 % (36-47)
[2024-01-27 04:01] LABS: Hematocrit 23.9 % (36-47); Lymphocytes # 0.9 10^3/uL (0.8-4.8); Mean Corpuscular HGB Conc 32.2 g/dL (30-55); Mean Corpuscular Hemoglobin 30.9 pg (27-33); Mean Platelet Volume 11.1 fL (7.4-10.4); Monocytes # 0.2 10^3/uL (0.2-0.9); Monocytes % 3.4 %; Neutrophils % 76.2 %; Nucleated Red Blood Cells % 0 %; Platelet Count 259 10^3/cmm (157-399); Red Blood Count 2.49 10^6/uL (3.85-5.65); White Blood Count 4.46 10^3/uL (3.29-11.43)
[2024-01-27 04:23] LABS: Estmated Average Glucose 111; Hemoglobin A1C 5.5 % (4.0-6.0)
[2024-01-27 04:25] LABS: Alanine Aminotransferase 7 U/L (0-33); Albumin Level 3.1 g/dL (3.5-5.2); Alkaline Phosphatase 53 U/L (35-105); Anion Gap 12.2 (5-19); Aspartate Amino Transferase 13 U/L (0-32); Blood Urea Nitrogen 39 mg/dL (8-23); Calcium 7.9 mg/dL (8.5-10.5); Carbon Dioxide 26 mmol/L (22-29); Chloride 106 mmol/L (98-107); Creatinine Clr Calc Pharmacy 44.2624; Globulin 2.3 g/dL (1.3-4.6); Glucose 150 mg/dL (65-115); Magnesium 2.1 mg/dL (1.7-2.3); Osmolality Calculated 302 mOsm/kg (285-295); Phosphorus 3.3 mg/dL (2.5-4.5); Potassium 4.2 mmol/L (3.5-5.1); Sodium 140 mmol/L (136-145); Total Bilirubin 0.2 mg/dL (0.15-1.2); Total Protein 5.4 g/dL (6.6-8.7)
[2024-01-27 04:26] LABS: Chol HDL Ratio 4.76 mg/dL (0.0-4.40); Cholesterol 162 mg/dL (0-200); HDL Cholesterol 34 mg/dL (60-100); LDL Cholesterol Calculated 104 mg/dL (50-129); LDL HDL Ratio 3.06 RATIO (0.00-3.22); Triglycerides 119 mg/dL (0-150)
[2024-01-27 04:27] LABS: Procalcitonin 0.04 ng/mL (0-0.5)
[2024-01-27 04:38] LABS: Folate Level 10.3 ng/mL (4.8-37.3)
[2024-01-27] MEDS: pantoprazole 40 mg SDV IVP ×2 (07:37→17:06)
[2024-01-27 07:58] LABS: Hematocrit 24.5 % (36-47)
--- NOTE | 2024-01-27 09:14 | PC.CHAP ---
Pastoral Care Encounter/Spiritual Assessment Type of Contact [] Declined forestry foreman visit [] Patient/Family/Request visit [] Outpatient visit [] Follow-up visit [] Physician referral [] Code/Alert [x] Routine visit [] Staff referral [] Actively dying [] Patient sleeping [] Family support [] [] Out of room [] Palliative care [] [] Receiving care in room [] Pre-surgical visit [] Trauma [] Long length of stay [] ICU visit [] Other: Relational/Emotional Strength [x] Patient feels connected with others/family/visitors/staff [] Distress [] Loneliness/isolation [] Abandonment Spirituality of Patient [x] Person of Verna [] Attends Oriental Orthodox of their Verna [x] Believes in Prayer [] Reads Bible or Episcopal materials [] There are Spiritual issues to be addressed Chair Trimmer Interventions [x] Prayer [x] Active listening [] Non-anxious presence [x] Spiritual/emotional support [] Crisis/trauma care [] Spiritual counseling [] Bereavement support [] Provided bereavement packet [] Provided Bible/devotional materials [] Provided toy/stuffed animal, coloring book to patient or family member [] Provided Communion [] Anointing/[place] [] Salvation [x] Completed spiritual assessment [] Other: Impact on Illness or Injury [] Angry [] Fearful [] Anxious [] Often cries [] Exhaustion [] Unable to work [] Unable to attend catholic [] Unable to walk/stand [] Unable to read [] Unable to drive [] Unable to eat/drink [] Unable to sleep [] Unable to be with family [] Patient intubated [] Other: Summary Time spent with patient 5 min
[2024-01-27] MEDS: lanolin oint 7 gm 1 APPLIC TOPICAL (09:54)
[2024-01-27] MEDS: citalopram 20 mg Tablet 40 MG PO (09:54)
--- NOTE | 2024-01-27 14:07 | P.PN_ITS ---
Subjective 2 Subjective: No acute vents overnight. Today morning patient seen laying comfortably in bed on 1 L of oxygen supplementation. States she is feeling slightly better. Having more energy. Denies any nausea, vomiting, headache. Denies any chest pain. Vitals/I&O/Wt Last Vital Signs Temp 99.2 F 01/27/24 13:18 Pulse 66 01/27/24 13:50 Resp 26 H 01/27/24 13:50 BP 102/54 01/27/24 13:50 Pulse Ox 96 01/27/24 13:50 O2 Del Method Nasal Cannula 01/27/24 08:00 O2 Flow Rate 2 01/27/24 08:00 01/26/24 01/27/24 01/27/24 22:59 06:59 14:59 Intake Total 1200 / 1200 100 / 1300 357 / 357 Balance 1200 / 1200 100 / 1300 357 / 357 Weight last 48 hrs Weight 83.007 kg Weight 83.007 kg Weight 83.007 kg Physical Exam 2 Narrative: General: No acute distress, AO x3, pallor present, flat affect HEENT: PERRLA, pupils bilaterally equal and reactive Chest: Normal vesicular breath sounds, no added sounds, equal good air entry bilaterally CVS: S1-S2 regular, no murmurs, no tachycardia, no gallops, no rubs Abdomen: Soft, nontender, no organomegaly, bowel sounds present Neuro: No focal deficits, no facial deformity, AO x3, power 5/5 in all limbs Data 01/27/24 07:46 01/27/24 03:32 Micro: Microbiology 01/26/24 15:28 Blood Culture - Preliminary Blood SPECIMEN COLLECTED 01/26/24 15:19 Blood Culture - Preliminary Blood SPECIMEN COLLECTED A&P Assessment and plan (1) Anemia: Most likely in setting of upper GI bleed. Did have diarrhea or blood in vomitus or black and tarry in nature for 5 days around 2 days ago. Protonix 40 mg twice daily. Zofran as needed. Plan for endoscopy today. Keep NPO. Depending on the result of endoscopy may add Carafate. Appreciate hemoglobin level. Trending down to around 7.8. Target hemoglobin more than 7. With borderline blood pressures and hemoglobin around 7 with significant drop in last 24 hours will transfuse 1 unit of PRBC. Recheck hemoglobin in evening. Did have mild hypotension on presentation. Continue with and normal saline at 75 cc/h. (2) Acute upper gastrointestinal bleeding: (3) COVID-19: Hypoxia secondary to COVID-19 pneumonia: Mild disease. Oxygen supplementation keeping saturation over 88%. Dexamethasone 6 mg daily. Remdesivir to finish a 3-5-day course. DuoNeb as needed Pulmonary toilet with incentive spirometry flutter valve. Monitor CRP every 48 hours. Appreciate procalcitonin. Low concern for bacterial pneumonia. Follow-up blood culture. Sputum culture not collected. (4) TIM (acute kidney injury): Baseline creatinine about 0.7. 1.2 on admission. Trending down to 1. BUN trending down. No electrode abnormality. Normal saline as above. Monitor BMP daily. No electrode normalities for now. (5) Difficulty breathing: (6) Diarrhea: Plan Hypertension: Goal blood pressure less than 140/90 mmHg with mean over 65. Patient takes multiple antihypertensive including hydrochlorothiazide, lisinopril and metoprolol succinate at home. Currently on hold given soft blood pressures. Monitor daily. CODE STATUS: Discussed noted with the patient. Granddaughter will be the DPOA. DNR/DNI. N.p.o. for endoscopy. Restart diet as per surgical recommendations post procedures. Protonix will be sufficient for PUD prophylaxis SCD for DVT prophylaxis. Attestations 2 Medical Necessity Statement*: Requires further hospitalization for management of anemia requiring blood transfusion in setting of upper GI bleed needing endoscopy, mild hypoxia in setting of COVID-19 Diagnoses Anemia D64.9 Acute upper gastrointestinal bleeding K92.2 COVID-19 U07.1 TIM (acute kidney injury) N17.9 Difficulty breathing R06.89 Diarrhea R19.7
--- NOTE | 2024-01-27 15:21 | P.HPUD_ITS ---
Surgery/Procedure H&P Update DATE OF PROCEDURE: January 27, 2024 DATE H&P PERFORMED: 01/26/24 H&P UPDATE INFORMATION: I have reviewed H&P completed within last 30 days, I have examined patient prior to procedure, No changes to prior documentation and H&P is in [facility] EMR on date indicated PLANNED PROCEDURE: Operation Date: 01/27/24 15:20 Proposed Procedures p EGD(Not Applicable) - Lucas Dhillon MD
--- NOTE | 2024-01-27 15:36 | P.ANESASSM_ITS ---
Pre-Anesthetic Assessment Height/Weight: Height 5 ft 3 in Weight 188 lb 0.869 oz Temp Pulse Resp BP Pulse Ox O2 Del Method O2 Flow Rate 98.8 F 66 19 H 109/62 96 Nasal Cannula 2 01/27/24 14:18 01/27/24 14:18 01/27/24 14:18 01/27/24 14:18 01/27/24 14:18 01/27/24 08:00 01/27/24 08:00 Preop Diagnosis: Concern for GI bleed Operation Date: 01/27/24 15:20 Proposed Procedures p EGD(Not Applicable) - Lucas Dhillon MD Social No alcohol and No tobacco Anesthetic Plan ASA status: 3 Anesthesia: MAC Other: Initially presented to the ED with weakness Current everyday smoker Hypertension on lisinopril, hydrochlorothiazide, metoprolol Labs reviewed, hemoglobin 7.8 today Previous EKG showing sinus bradycardia Plan for MAC anesthesia Medications/Allergies Home Medications Medication Instructions Recorded Confirmed Last Taken Type citalopram 40 mg tablet 40 mg PO DAILY@04/21/20 01/26/24 01/25/24 History lisinopril 40 mg tablet 40 mg PO DAILY@04/21/20 01/26/24 01/25/24 History lorazepam 0.5 mg tablet 0.5 - 0.75 mg PO 2100 04/21/20 01/26/24 01/25/24 History metoprolol succinate 100 mg 200 mg PO DAILY 04/21/20 01/26/24 01/25/24 History tablet,extended release 24 hr ondansetron 4 mg disintegrating 4 mg PO Q6H PRN nausea and 04/21/20 01/26/24 Unknown Rx tablet vomiting #14 tabs tiotropium bromide 2.5 2 puff inhalation DAILY PRN unknown 04/21/20 01/26/24 01/25/24 History mcg/actuation mist for inhalation (Spiriva Respimat) hydrochlorothiazide 25 mg tablet 25 mg PO DAILY 07/16/23 01/26/24 01/25/24 History albuterol sulfate 90 mcg/actuation 2 puff inhalation Q4H PRN sob 01/26/24 01/26/24 01/25/24 History aerosol inhaler aspirin 81 mg chewable tablet 81 mg PO DAILY 01/26/24 01/26/24 Unknown History Allergies Allergy/AdvReac Type Severity Reaction Status Date / Time codeine Allergy ADR-Nausea Verified 01/04/24 14:43 Current Medications Generic Name Dose Route Start Last Admin Trade Name Freq PRN Reason Stop Dose Admin Citalopram Hydrobromide 40 mg 01/27/24 10:00 01/27/24 09:54 Citalopram 20 Mg Tablet PO 40 mg DAILY@10 JOHNATHON Administration Dexamethasone 6 mg 01/26/24 18:00 01/26/24 20:05 Dexamethasone 10 Mg/Ml Inj IVP 6 mg Q24H JOHNATHON Administration Sodium Chloride 1,000 mls @ 75 mls/hr 01/26/24 17:45 01/27/24 08:01 Sodium Chloride 0.9% IV Not Given .[id number] JOHNATHON Sodium Chloride 1,000 mls @ 30 mls/hr 01/26/24 18:49 01/27/24 08:00 Sodium Chloride 0.9% IV 01/27/24 18:48 75 mls/hr .Q24H ONE Infusion Lanolin 1 applic 01/27/24 09:35 01/27/24 09:54 Lanolin Oint 7 Gm TOPICAL 1 applic PRN PRN Administration DRYNESS Lorazepam 0.5 mg 01/26/24 21:00 01/26/24 20:06 Lorazepam 0.5 Mg Tablet PO 0.5 mg 2100 JOHNATHON Administration Pantoprazole Sodium 40 mg 01/27/24 07:00 01/27/24 07:37 Pantoprazole 40 Mg Sdv IVP 40 mg Q12H JOHNATHON Administration PFSH Anesthesia Medical History (Updated 01/26/24 @ 18:01 by John Huerta MD) Endometrioid adenocarcinoma of ovary Surgical History (Updated 01/26/24 @ 18:01 by John Huerta MD) History of hysterectomy History of bilateral oophorectomy Hx of colonoscopy 5 years ago Family History Mother CAD (coronary artery disease) Aneurism Son Cancer at 25 with melanoma Son No problems noted. Sister Stroke Other Hyperlipidemia Hypertension Lung disease Denies family history of Diabetes Clotting disorder Dementia Psychiatric illness Chronic kidney disease (CKD) Suicide Anesthesia complication Bleeding disorder Social History Smoking and tobacco/nicotine status: current every day tobacco/nicotine user cigarettes Packs smoked per day: 0.5 Years cigarettes smoked: 30 Current gender identity: Female Data Anesthesia 01/27/24 07:46 01/27/24 03:32 Short CBC 01/26/24 01/26/24 01/27/24 Range/Units 15:19 18:26 01:20 WBC 9.79 (3.29-11.43) 10^3/uL Hgb 9.10 L 8.40 L 7.80 L (11.27-16.99) g/dL Hct 28.3 L 26.6 L 24.5 L (36-47) % MCV 97.3 (85-98) fl Plt Count 289 (157-399) 10^3/cmm Neut % (Auto) 72.8 % Neut # (Auto) 7.13 (1.8-7.7) 10^3/uL 01/27/24 01/27/24 Range/Units 03:32 07:46 WBC 4.46 (3.29-11.43) 10^3/uL Hgb 7.70 L 7.80 L (11.27-16.99) g/dL Hct 23.9 L 24.5 L (36-47) % MCV 96.0 (85-98) fl Plt Count 259 (157-399) 10^3/cmm Neut % (Auto) 76.2 % Neut # (Auto) 3.40 (1.8-7.7) 10^3/uL BMP 01/26/24 01/27/24 15:19 03:32 Sodium 138 140 Potassium 4.2 4.2 Chloride 100 106 Carbon Dioxide 26 26 BUN 55 H 39 H Creatinine 1.2 H 1.0 H Glucose 107 150 H Calcium 8.6 7.9 L Liver Function 01/26/24 01/27/24 Range/Units 15:19 03:32 Total Bilirubin 0.4 0.2 (0.15-1.2) mg/dL AST 16 13 (0-32) U/L ALT 8 7 (0-33) U/L Alkaline Phosphatase 59 53 (35-105) U/L Albumin 3.5 3.1 L (3.5-5.2) g/dL Urine 01/26/24 Range/Units 15:55 Urine Color Yellow (Yellow) Urine Appearance Slightly cloudy (CLEAR) Urine pH 5 (5-7) Ur Specific [place] 1.015 (1.005-1.030) Urine Protein Neg (Negative) Urine Glucose (UA) Norm (Normal) Urine Ketones Negative (Negative) Urine Nitrate Negative (Negative) Urine Bilirubin Neg (Negative) Ur Leukocyte Esterase 1+ H (Negative) Urine RBC 0-4 H (0-2) /hpf Urine WBC 5-10 H (0-5) /hpf Blood Bank 01/26/24 16:50 Blood Type O Positive Rho(D) Type Rh positive Antibody Screen Negative COVID Results 01/26/24 01/26/24 15:48 15:48 Coronavirus (PCR) Cancelled Positive A Coags 01/26/24 01/26/24 15:19 16:50 PT 13.00 INR 0.96 APTT 23.7 L D-Dimer 0.64 H C-Reactive Protein 7.8 H 8.7 H Microbiology 01/26/24 15:28 Blood Culture - Preliminary Blood NEGATIVE TO DATE 01/26/24 15:19 Blood Culture - Preliminary Blood NEGATIVE TO DATE Cardiac Studies: 2 No Data to Display
--- NOTE | 2024-01-27 16:31 | PC.NURSE ---
Patient off the unit for EGD at 1545.
--- NOTE | 2024-01-27 16:40 | ANE.PACU2 ---
Inpatient post-anesthesia follow up: Airway intact: Yes Vital signs: Temperature 97.0 F Pulse Rate 69 Respiratory Rate 18 Blood Pressure 102/51 Pulse Oximetry 99 Oxygen Delivery Me thod [ Nasal Cannula Current Rate & Del serge] Oxygen Delivery Me thod Room Air Oxygen Flow Rate [ Current Rate 2 & Delivery] Oxygen Flow Rate 6 Fraction of Inspir ed Oxygen Hydration adequate: Yes Nausea and vomiting: No Pain level: 1 Mental status: Baseline
[2024-01-27] MEDS: dexamethasone 10 mg/mL INJ 6 MG IVP (17:05)
[2024-01-27] MEDS: remdesivir 100 MG in sodium chloride 0.9% (100 ml) 80 ML IV (17:06)
[2024-01-27 18:12] LABS: Hematocrit 28.2 % (36-47)
[2024-01-27] MEDS: sodium chloride 0.9% 1,000 ML 75 ML IV (21:53)
[2024-01-27] MEDS: LORazepam 0.5 mg Tablet PO (21:54)
[2024-01-28 00:37] VITALS: BP 95/52; PULSE 66; RESP 18; O2SAT 91
[2024-01-28 04:08] LABS: Hematocrit 27.2 % (36-47); Lymphocytes % 19.3 %; Mean Corpuscular HGB Conc 32.4 g/dL (30-55); Mean Corpuscular Hemoglobin 30.6 pg (27-33); Mean Corpuscular Volume 94.4 fl (85-98); Mean Platelet Volume 11.4 fL (7.4-10.4); Monocytes # 0.2 10^3/uL (0.2-0.9); Monocytes % 4.6 %; Neutrophils # 3.94 10^3/uL (1.8-7.7); Neutrophils % 75.5 %; Nucleated Red Blood Cells % 0 %; Platelet Count 236 10^3/cmm (157-399); Red Blood Count 2.88 10^6/uL (3.85-5.65); Red Cell Distribution Width 13.7 % (12.1-15.1); White Blood Count 5.22 10^3/uL (3.29-11.43)
[2024-01-28 05:00] VITALS: BP 121/60; PULSE 67; RESP 18; TEMP 36.7; O2SAT 90
[2024-01-28 05:02] LABS: Alanine Aminotransferase 7 U/L (0-33); Albumin Level 3.2 g/dL (3.5-5.2); Alkaline Phosphatase 53 U/L (35-105); Blood Urea Nitrogen 26 mg/dL (8-23); Carbon Dioxide 26 mmol/L (22-29); Chloride 109 mmol/L (98-107); Globulin 2.2 g/dL (1.3-4.6); Glucose 146 mg/dL (65-115); Osmolality Calculated 303 mOsm/kg (285-295); Sodium 143 mmol/L (136-145); Total Bilirubin 0.3 mg/dL (0.15-1.2); Total Protein 5.4 g/dL (6.6-8.7)
[2024-01-28 05:04] LABS: Anion Gap 12.6 (5-19); Aspartate Amino Transferase 14 U/L (0-32); Potassium 4.6 mmol/L (3.5-5.1)
[2024-01-28 06:00] VITALS: PULSE 69
[2024-01-28] MEDS: pantoprazole 40 mg SDV IVP (06:58)
[2024-01-28 07:36] VITALS: BP 115/66; PULSE 71; RESP 20; TEMP 36.4; O2SAT 92
--- NOTE | 2024-01-28 08:26 | XR_ITS ---
WS: [id number] PORTABLE CHEST HISTORY: covid COMPARISON: 01/26/2024 Mild pulmonary hyperexpansion. Very mild new interstitial prominence in the medial RIGHT lower lobe. Part of this may be atelectasis. There is no pneumonia or dense consolidation. No pleural effusion or pneumothorax. Cardiac size: Normal. Mediastinum/Aorta: Mild atherosclerosis aorta. No osseous abnormality seen. XR/XR chest 1V portable [id number] IMPRESSION: 1. Mild pulmonary hyperinflation. 2. New very slight interstitial thickening in the medial RIGHT lower lobe. Ear ly pneumonitis not excluded.
[2024-01-28] MEDS: FUROsemide 20 mg Tablet PO (08:47)
[2024-01-28] MEDS: citalopram 20 mg Tablet 40 MG PO (08:47)
[2024-01-28 08:58] LABS: C Reactive Protein 8.2 mg/L (0.0-4.9)
[2024-01-28 09:47] LABS: D Dimer 3.64 ug/mLFEU (0-0.59)
[2024-01-28] MEDS: remdesivir 100 MG in sodium chloride 0.9% (100 ml) 80 ML IV (09:49)
[2024-01-28 10:14] VITALS: O2SAT 92; O2SAT 94
--- NOTE | 2024-01-28 10:26 | PM.DCS ---
Discharge Providers Date of Admission: 01/26/24 16:24 Date of Discharge: January 28, 2024 Attending Provider at Admission: John Huerta MD Attending Provider at Discharge: John Huerta MD Primary Care Provider: Jared Casanova MD Diagnoses at Discharge Discharge Diagnosis (1) Anemia: Status: Acute (2) Acute upper gastrointestinal bleeding: Status: Acute (3) COVID-19: Status: Acute (4) TIM (acute kidney injury): Status: Acute (5) Difficulty breathing: Status: Acute (6) Diarrhea: Status: Acute Reason for Visit Reason for Visit: low BP, dehydration, vomitting, diarrhea Hospital Course Hospital Course Leonora Gupta is a 83 year old female with past medical history of hypertension, depression presented to be today because of feeling weak, tired over the last 1 week. Patient started feeling sick last Thursday around 8 days ago with episodes of nausea vomiting and diarrhea. Last diarrheal bowel movement was 3 days ago. Bowel movements are black and tarry in nature. Has not had any further bowel movements for last 2 days. She is passing flatus. Denies of having abdominal pain. Complains of feeling weak, tired and dizzy. Granddaughter lives with her does have symptoms of sinusitis and was tested negative for COVID 2 days ago. Patient herself denies headache. Does complain of occasional difficulty in breathing. In the ER she was found to have hypotension requiring 1 L of bolus after which her blood pressure improved to 100 systolic. Current on examination she is awake and alert on 1 L of oxygen supplementation with heart of 67 bpm and blood pressure of 96 over 60 mmHg. Patient was admitted to the hospital further evaluation and management of mild hypotension in setting of anemia with concerns for GI bleed. She started on IV fluids. Her blood pressures and TIM resolved with hydration. She required monitor blood transfusion during hospitalization. She was also found to be positive for COVID-19 though it was found to be in mild disease. She was treated with IV steroids and 3-day course of remdesivir. Surgery was consulted and she underwent endoscopy on 01/26 which showed small hiatal hernia without obstruction or gangrene, acute localized gastritis which was erythematous and erosive without any active bleed. She has been discharged in medically stable condition after home O2 evaluation has been done on oral steroids for next 7 days along with Protonix twice daily and Carafate for next 4 weeks. She is to continue taking Protonix daily after completion of course of 4 weeks. High concerns for recurrent upper GI bleed were discussed in detail with the patient given the need of oral steroids because of COVID-19 as of now. She is to follow-up with a primary care provider within next 1 week for repeat CBC. Her home antihypertensives including hydrochlorothiazide lisinopril and metoprolol are currently on hold. Her goal blood pressure is less than 140/90 mmHg. She is advised to check her blood pressure daily at home maintain a blood pressure diary and follow-up with the pre and primary care provider in next 2 weeks for further adjustment of medications. Physical Exam Narrative: General: No acute distress, AO x3, pallor present, HEENT: PERRLA, pupils bilaterally equal and reactive Chest: Normal vesicular breath sounds, no added sounds, equal good air entry bilaterally CVS: S1-S2 regular, no murmurs, no tachycardia, no gallops, no rubs Abdomen: Soft, nontender, no organomegaly, bowel sounds present Neuro: No focal deficits, no facial deformity, AO x3, power 5/5 in all limbs Discharge Data Studies Completed and Pending Completed Studies During Hospitalization Category Date Time Status XR chest 1V portable [id number] Routine Exams 01/26/24 17:56 Completed XR chest 1V portable [id number] Routine Exams 01/28/24 08:26 Completed Pending at discharge Category Date Time Status Blood Culture Stat Lab 01/26/24 15:28 Results PRBC [Leukocyte Reduced RBC] Routine Lab 01/27/24 10:13 Results Sputum Culture and Gram Stain Stat Lab 01/27/24 14:10 Uncollected Type and Screen Stat Lab 01/26/24 16:50 Results Urine Culture Stat Lab 01/26/24 15:55 Received Pathology: Surgical [PTH] Routine Pth 01/27/24 16:26 Received Radiology Impressions Chest X-Ray 01/28/24 08:26 IMPRESSION: 1. Mild pulmonary hyperinflation. 2. New very slight interstitial thickening in the medial RIGHT lower lobe. Early pneumonitis not excluded. Laboratory Results WBC 5.22 10^3/uL (3.29-11.43) 01/28/24 03:52 RBC 2.88 10^6/uL (3.85-5.65) L 01/28/24 03:52 Hgb 8.80 g/dL (11.27-16.99) L 01/28/24 03:52 Hct 27.2 % (36-47) L 01/28/24 03:52 MCV 94.4 fl (85-98) 01/28/24 03:52 MCH 30.6 pg (27-33) 01/28/24 03:52 MCHC 32.4 g/dL (30-55) 01/28/24 03:52 RDW 13.7 % (12.1-15.1) 01/28/24 03:52 Plt Count 236 10^3/cmm (157-399) 01/28/24 03:52 MPV 11.4 fL (7.4-10.4) H 01/28/24 03:52 Neut % (Auto) 75.5 % 01/28/24 03:52 Lymph % (Auto) 19.3 % 01/28/24 03:52 [place] % (Auto) 4.6 % 01/28/24 03:52 Eos % (Auto) 0.0 % 01/28/24 03:52 Baso % (Auto) 0.0 % 01/28/24 03:52 Neut # (Auto) 3.94 10^3/uL (1.8-7.7) 01/28/24 03:52 Lymph # (Auto) 1.0 10^3/uL (0.8-4.8) 01/28/24 03:52 [place] # (Auto) 0.2 10^3/uL (0.2-0.9) 01/28/24 03:52 Eos # (Auto) 0.0 10^3/uL (0.0-0.8) 01/28/24 03:52 Baso # (Auto) 0.0 10^3/uL (0.0-0.1) 01/28/24 03:52 Nucleated RBC % (auto) 0 % 01/28/24 03:52 Nucleated RBCs # 0.0 /100WBC 01/28/24 03:52 PT 13.00 SECONDS (12.1-14.9) 01/26/24 15:19 INR 0.96 (0.8-1.2) 01/26/24 15:19 APTT 23.7 SECONDS (23.9-36.7) L 01/26/24 15:19 D-Dimer 3.64 ug/mLFEU (0-0.59) H 01/28/24 09:03 Sodium 143 mmol/L (136-145) 01/28/24 03:52 Potassium 4.6 mmol/L (3.5-5.1) 01/28/24 03:52 Chloride 109 mmol/L (98-107) H 01/28/24 03:52 Carbon Dioxide 26 mmol/L (22-29) 01/28/24 03:52 Anion Gap 12.6 (5-19) 01/28/24 03:52 BUN 26 mg/dL (8-23) H 01/28/24 03:52 Creatinine 0.8 mg/dL (0.5-0.9) 01/28/24 03:52 GFR Calculation Not Reportable 01/28/24 03:52 Glucose 146 mg/dL (65-115) H 01/28/24 03:52 Estimat Average Glucose 111 01/27/24 03:32 Hemoglobin A1c 5.5 % (4.0-6.0) 01/27/24 03:32 Calculated Osmolality 303 mOsm/kg (285-295) H 01/28/24 03:52 Lactic Acid 2.2 mmol/L (0.5-2.2) 01/26/24 15:28 Lactic Acid (Sepsis) 2.3 mmol/L (0.5-2.2) H 01/26/24 18:26 Calcium 8.0 mg/dL (8.5-10.5) L 01/28/24 03:52 Phosphorus 3.3 mg/dL (2.5-4.5) 01/27/24 03:32 Magnesium 2.1 mg/dL (1.7-2.3) 01/27/24 03:32 Iron 34 ug/dL (37-145) L 01/26/24 16:50 TIBC 264 mcg/dl 01/26/24 16:50 % Saturation 12.8 % (20-50) L 01/26/24 16:50 Unsat Iron Binding 230 ug/dL (112-347) 01/26/24 16:50 Total Bilirubin 0.3 mg/dL (0.15-1.2) 01/28/24 03:52 AST 14 U/L (0-32) 01/28/24 03:52 ALT 7 U/L (0-33) 01/28/24 03:52 Alkaline Phosphatase 53 U/L (35-105) 01/28/24 03:52 C-Reactive Protein 8.2 mg/L (0.0-4.9) H 01/28/24 03:52 Total Protein 5.4 g/dL (6.6-8.7) L 01/28/24 03:52 Albumin 3.2 g/dL (3.5-5.2) L 01/28/24 03:52 Globulin 2.2 g/dL (1.3-4.6) 01/28/24 03:52 Triglycerides 119 mg/dL (0-150) 01/27/24 03:32 Cholesterol 162 mg/dL (0-200) 01/27/24 03:32 LDL Cholesterol, Calc 104 mg/dL (50-129) 01/27/24 03:32 HDL Cholesterol 34 mg/dL (60-100) L 01/27/24 03:32 LDL/HDL Ratio 3.06 RATIO (0.00-3.22) 01/27/24 03:32 Cholesterol/HDL Ratio 4.76 mg/dL (0.0-4.40) H 01/27/24 03:32 Lipase 49 U/L (13-60) 01/26/24 15:19 Vitamin B12 516 pg/mL (232-1245) 01/26/24 16:50 Folate 10.3 ng/mL (4.8-37.3) 01/27/24 03:32 Procalcitonin 0.04 ng/mL (0-0.5) 01/27/24 03:32 TSH 0.46 uIU/mL (0.27-4.20) 01/26/24 16:50 Urine Color Yellow (Yellow) 01/26/24 15:55 Urine Appearance Slightly cloudy (CLEAR) 01/26/24 15:55 Urine pH 5 (5-7) 01/26/24 15:55 Ur Specific [place] 1.015 (1.005-1.030) 01/26/24 15:55 Urine Protein Neg (Negative) 01/26/24 15:55 Urine Glucose (UA) Norm (Normal) 01/26/24 15:55 Urine Ketones Negative (Negative) 01/26/24 15:55 Urine Blood 2+ (Negative) H 01/26/24 15:55 Urine Nitrate Negative (Negative) 01/26/24 15:55 Urine Bilirubin Neg (Negative) 01/26/24 15:55 Urine Urobilinogen Norm mg/dL (Negative) 01/26/24 15:55 Ur Leukocyte Esterase 1+ (Negative) H 01/26/24 15:55 Urine RBC 0-4 /hpf (0-2) H 01/26/24 15:55 Urine WBC 5-10 /hpf (0-5) H 01/26/24 15:55 Ur Squamous Epith Cells 0-4 /hpf (0-5) H 01/26/24 15:55 Amorphous Sediment Not Reportable 01/26/24 15:55 Urine Bacteria Trace /hpf (NONE) 01/26/24 15:55 Coronavirus (PCR) Cancelled 01/26/24 15:48 Coronavirus (PCR) Positive (Negative) A 01/26/24 15:48 Influenza A (PCR) Cancelled 01/26/24 15:48 Influenza A (PCR) Negative (Negative) 01/26/24 15:48 Influenza Type B (PCR) Cancelled 01/26/24 15:48 Influenza Type B (PCR) Negative (Negative) 01/26/24 15:48 RSV (PCR) Cancelled 01/26/24 15:48 RSV (PCR) Negative (Negative) 01/26/24 15:48 Blood Type O Positive 01/26/24 16:50 Rho(D) Type Rh positive 01/26/24 16:50 Antibody Screen Negative 01/26/24 16:50 Crossmatch See Detail 01/26/24 16:50 Vitals Last Vital Signs Temp 97.6 F 01/28/24 07:36 Pulse 71 01/28/24 07:36 Resp 20 H 01/28/24 07:36 BP 115/66 01/28/24 07:36 Pulse Ox 92 01/28/24 10:14 O2 Del Method Nasal Cannula 01/28/24 07:36 O2 Flow Rate 2 01/28/24 07:36 Discharge Plan Discharge Patient Disposition: Home Condition: Stable Prescriptions: New Protonix 40 mg tablet,delayed release (DR/EC) 40 mg PO BID Qty: 60 0RF Rx Instructions: Protonix twice daily for next 4 weeks followed by daily Carafate 1 gram tablet 1 g PO TID 28 Days Qty: 84 0RF dexamethasone 6 mg tablet 3 mg PO DAILY Qty: 7 0RF Continued citalopram 40 mg tablet 40 mg PO DAILY@10 lorazepam 0.5 mg tablet 0.5 - 0.75 mg PO 2100 ondansetron 4 mg tablet,disintegrating 4 mg PO Q6H PRN (Reason: nausea and vomiting) Qty: 14 0RF aspirin 81 mg Tablet,Chewable 81 mg PO DAILY albuterol sulfate 90 mcg/actuation HFA aerosol inhaler 2 puff INHALATION Q4H PRN (Reason: sob) Changed Spiriva Respimat 2.5 mcg/actuation mist 2 puff INHALATION DAILY 14 Days Qty: 4 0RF Held metoprolol succinate 100 mg tablet extended release 24 hr 200 mg PO DAILY Hold Instructions: Resume on 02/11/24. Rx Instructions: @10,21 lisinopril 40 mg tablet 40 mg PO DAILY@10 Hold Instructions: Resume on 02/11/24. No Action hydrochlorothiazide 25 mg tablet 25 mg PO DAILY Discharge Orders: Discharge Order (Routine); Ordered 01/28/24 Ordered By: John Huerta Referrals: Jared Casanova MD [Primary Care Provider] - 02/03/24 1:15 pm Discharge Diet: Cardiac Discharge Activity: Resume usual activity and Increase activity as tolerated Patient Instructions: Anemia, Dehydration - Adult, Sucralfate (By mouth), Dexamethasone (By mouth), Pantoprazole (By mouth), Gastrointestinal Bleeding (DC), COVID-19 (Coronavirus Disease 2019) (DC), COVID-19: Slow the Coronavirus Spread (DC), GI Post Discharge Instructions w/ Anesthesia, Opioid Safety Activity Restrictions/Additional Instructions: Take Protonix twice daily for next 4 weeks followed by once daily. Take Carafate 3 times a day before meals for next 4 weeks. Follow-up with a primary care provider within next 1 week for repeat hemoglobin. Check your blood pressure daily at home maintain a blood pressure diary and follow-up with a primary care provider within next 2 weeks for further adjustment of antihypertensive. For now do not take your home dose of lisinopril and metoprolol for next 2 weeks. Hold off on taking hydrochlorothiazide as it has been stopped. Advised to take inhalation treatment with Spiriva daily for next 2 weeks. Advised to continue working with incentive spirometry and flutter valve while at home. Advised to continue taking dexamethasone 3 mg for neck 7 days. Advised to follow-up with his primary care provider within the next 4 to 7 days. Can take COVID-19 vaccination in 3 months. Advised to continue following social distancing and isolation protocol for next 10 days. Advised to come back to the ER if fever of more than 101 Fahrenheit, more difficulty breathing than usual or requiring higher oxygen supplementation. Discharge Attestations Time Spent in Discharge Care*: greater than 30 min Specific Discharge Activities: educating patient, educating and/or supporting family/caregiver, discussing with pcp/other providers, discussing with case resource manager/social workers/dc planners, documenting/other paperwork and evaluating patient/reviewing data Status at Discharge: Cognitive status at discharge: cognitively intact, Behavioral status at discharge: cooperative, Functional status at discharge: independent ambulation, Overall status at discharge: patient is progressing back to baseline Quality Metrics Clinical Quality Measures [ No reported AMI, CVA or VTE this stay] Coding Level of Care Code 54114 Total time (in minutes) for Discharge: 60 Diagnoses Anemia D64.9 Acute upper gastrointestinal bleeding K92.2 COVID-19 U07.1 TIM (acute kidney injury) N17.9 Difficulty breathing R06.89 Diarrhea R19.7
[2024-01-28 11:20] VITALS: BP 115/66; PULSE 71; RESP 20; TEMP 36.4; O2SAT 92
--- NOTE | 2024-01-28 11:57 | PC.NURSE ---
discharge instructions given and explained.pt and portia verb understanding.discharged via w/c to exit at this time
== END 2024-01-28 11:59 | disposition home or self-care (01) | DRG 811 ==
LOC: ER 16:16 → CSU 16:24
PROVIDERS: Surgery; Admitting Provider Student in an Organized Health Care Education/Training Program; Emergency Provider Emergency Medicine; PCP Family Medicine; Visit Provider Student in an Organized Health Care Education/Training Program
PROC: 0DJ08ZZ Inspection of Upper Intestinal Tract, Via Natural or Artificial Opening Endoscopic (ICD-10-PCS; CPT 43235; principal; 2024-01-27 15:20)
DX: D62 Acute posthemorrhagic anemia (principal); J12.82 Pneumonia due to coronavirus disease 2019; K29.01 Acute gastritis with bleeding; U07.1 COVID-19; N17.9 Acute kidney failure, unspecified; D64.9 Anemia, unspecified; R19.7 Diarrhea, unspecified; I10 Essential (primary) hypertension; Z79.899 Other long term (current) drug therapy; Z79.82 Long term (current) use of aspirin; Z88.5 Allergy status to narcotic agent; Z90.710 Acquired absence of both cervix and uterus; F17.210 Nicotine dependence, cigarettes, uncomplicated; Z85.43 Personal history of malignant neoplasm of ovary; K44.9 Diaphragmatic hernia without obstruction or gangrene; I95.9 Hypotension, unspecified
CPT/HCPCS: 0241U; 36415; 36430; 43239; 71045; 80053; 80061; 81001; 82607; 82746; 83036; 83540; 83550; 83605; 83690; 83735; 84100; 84145; 84443; 85014; 85018; 85025; 85378; 85610; 85730; 86140; 86850; 86900; 86920; 87040; 87086; 88305; 94664; 94760; 96361; 96374; 96375; 99285; A9270; J0248; J1100; J2405; J2470; J2704; J7030; P9016